=== PATIENT | female | born 1930 | race Caucasian/White ===

== ENCOUNTER 2016-08-18 07:50 | Observation (INO) | payer OTHER, MEDICARE ==
[2016-08-18] MEDS ORDERED: FAMOTIDINE 20 MG TAB PO ONE (07:56)
[2016-08-18] MEDS ORDERED: NS 1,000 ML IV ONE (07:56)
[2016-08-18] MEDS ORDERED: diphenhydrAMINE 25 MG CAP PO ONE ×2 (07:56→08:44)
[2016-08-18] MEDS ORDERED: ASPIRIN EC 325 MG TAB PO ONE ×2 (07:56→08:44)
[2016-08-18] MEDS ORDERED: DIAZEPAM 5 MG TAB PO ONE (07:56)
--- NOTE | 2016-08-18 08:29 | CPEKG ---
Heart Rate: 68 RR Interval: 882 QRSD Interval: 76 QT Interval: 420 QTC Interval: 447 QRS Baldwin: -36 T Wave Baldwin: 62 EKG Severity - ABNORMAL ECG - EKG Impression: ATRIAL FIBRILLATION EKG Impression: LEFT AXIS DEVIATION EKG Impression: CONSIDER ANTEROSEPTAL INFARCT Electronically Signed By: Evan Joseph 18-Aug-2016 09:16:55
[2016-08-18] MEDS ORDERED: FAMOTIDINE 20 MG TAB ONE (08:44)
[2016-08-18] MEDS ORDERED: DIAZEPAM 5 MG TAB ONE (08:45)
[2016-08-18 09:05] LABS: % IMMATURE GRANULYOCYTES 0.5 % (0.0-1.1); ABSOLUTE IMMATURE GRANULOCYTES 0.02 10^3/uL (0.00-0.10); ADD DIFF? NO; ADD MORPH? NO; ADD SCAN? NO; ATYPICAL LYMPHOCYTE FLAG 30 (0-99); FRAGMENT RBC FLAG 0 (0-99); HEMATOCRIT 34.8 % (38.0-47.0); HEMOGLOBIN 11.3 g/dL (12.6-16.3); LEFT SHIFT FLG 0 (0-99); LIPEMIA HEMOLYSIS FLAG 80 (0-99); MEAN CELL HEMOGLOBIN 25.1 pg (27.9-34.1); MEAN CELL HEMOGLOBIN CONCENTR. 32.5 g/dL (32.4-36.7); MEAN CELL VOLUME 77.3 fL (81.5-99.8); MEAN PLATELET VOLUME 10.2 fL (8.7-11.7); PLATELET CLUMPS FLAG 10 (0-99); PLATELET COUNT 230 10^3/uL (150-400); RED CELL DISTRIBUTION WIDTH 15.9 % (11.5-15.2)
[2016-08-18] MEDS ORDERED: LIDOCAINE 1% 30 ML SDV ONE (09:07)
[2016-08-18] MEDS ORDERED: fentaNYL 100 MCG/2 ML INJ ONE ×2 (09:08→12:42)
[2016-08-18] MEDS ORDERED: MIDAZOLAM 2 MG/2 ML VIAL ONE ×3 (09:08→12:42)
[2016-08-18] MEDS ORDERED: HEPARIN 10,000 UNIT/10 ML MDV ONE (09:08)
[2016-08-18] MEDS ORDERED: BIVALIRUDIN 250 MG/5 ML VIAL IV ONE ×2 (09:09→12:53)
[2016-08-18] MEDS ORDERED: VERAPAMIL 5 MG/2 ML VIAL ONE ×2 (09:09→10:43)
[2016-08-18] MEDS ORDERED: NITROGLYCERIN 1,500 MCG/15 ML VIAL MISC ONE (09:10)
[2016-08-18] MEDS ORDERED: IOPAMIDOL (ISOVUE 370) 100 ML BTL IV ONE (09:11)
[2016-08-18 09:21] LABS: ANION GAP 10 mEq/L (8-16); CALCIUM 9.8 mg/dL (8.5-10.4); CARBON DIOXIDE 23 mEq/l (22-31); CHLORIDE 105 mEq/L (97-110); CHOLESTEROL 125 mg/dL (140-220); CHOLESTEROL/HDL RATIO 1.87 RATIO (1.00-4.44); CREATININE 0.9 mg/dL (0.6-1.0); GLOMERULAR FILTRATION RATE 59; GLUCOSE 84 mg/dL (70-100); HIGH DENSITY LIPOPROTEIN 67 mg/dL (40-85); LDL/HDL RATIO 0.66 RATIO (1.00-3.22); LOW DENSITY LIPOPROTEIN 44 mg/dL (80-100); MAGNESIUM 2.2 mg/dL (1.6-2.3); NON-HIGH DENSITY LIPOPROTEIN 58 mg/dL (90-129); POTASSIUM 4.9 mEq/L (3.5-5.2); SODIUM 138 mEq/L (134-144); TRIGLYCERIDE 71 mg/dL (35-135); VERY LOW DENSITY LIPOPROTEINS 14 mg/dL (8-25)
[2016-08-18 09:27] LABS: INR 1.03 (0.83-1.16); PROTIME(PATIENT) 13.4 SEC (12.0-15.0)
--- NOTE | 2016-08-18 11:08 | SUROPNOTE ---
[facility] Operative Report - Surgery Date of Procedure: 08/18/2016 Indication: This patient is an 85 year old woman with known coronary artery disease s/p three vessel CABG in 2004 (UNGER to LAD, SVG to Cx OM, and SVG to D1) , which resulted in early graft failure of both SVG and subsequent stenting of the circumflex posterolateral branch and first diagonal branch. The patient underwent right/left heart catheterization at [facility] 07/09/16, which demonstrated total occlusion of the previous placed stent in the first diagonal branch and occlusion of the previously placed circumflex posterolateral stent. Intervention was performed on the first diagonal branch, with placement of two drug-eluting stents. The posterolateral branch was not intervened upon at that time. Repeat nuclear stress test demonstrates continued evidence of anterolateral ischemia. The patient continues to experience class III anginal equivalent with dyspnea on exertion and fatigue. In the setting of ongoing anginal symptoms and continued evidence of ischemia on the nuclear stress test, which correlates to the circumflex posterolateral territory, the decision was made to proceed with intervention on the circumflex principle posterolateral branch. Procedures performed: 1. Selective coronary angiography. 2. Balloon angioplasty and intracoronary stent placement x1 in the circumflex posterolateral branch. 3. Balloon angioplasty and intracoronary stent placement x1 in the main circumflex. Description of procedure: Description, risks, benefits and alternatives were discussed in detail. Informed consent was obtained. The patient was brought to the catheterization laboratory where a timeout was performed. The right wrist was sterilely prepped and draped. 2% lidocaine utilized for local anesthetic. A 5/6-Omani slender hemostatic sheath placed right radial artery utilizing micropuncture technique. Intraarterial verapamil and intravenous heparin was administered. A 6-Omani XBC 3.5 guide catheter was utilized, passed over a short J Glidewire. Due to excessive tortuosity of the brachiocephalic artery, the decision was made to switch to femoral access. The right groin was sterilely prepped and draped. 2% lidocaine utilized for local anesthetic. A 6-Omani hemostatic sheath was placed in the right femoral artery utilizing Modified Seldinger technique. Due to tortuosity of the femoral and iliac arteries, the 6-Omani sheath was exchanged for a 6-Omani 24cm sheath. The 6-Omani XBC 3.5 catheter was reintroduced, however would not engage. The 24cm sheath was exchanged for a 7- Omani 45cm sheath and a 6-Omani EBU 3.75 guide catheter was utilized to engage the left coronary system. Angiomax was administered. A long Bottle Assembler 150 and Turnpike Spiral catheter were placed in the circumflex as a unit. The Bottle Assembler 150 was exchanged for a long Bottle Assembler 200 through the Turnpike Spiral catheter. This was advanced further in the distal circumflex, then exchanged for a Confianza Pro 12. There was difficulty advancing the wire and the Turnpike due to heavily calcified disease. The Confianza was ultimately able to advance slightly through the proximal cap of the posterolateral chronic total occlusion. The Turnpike Spiral was then advance to the origin of the posterolateral. The Confianza Pro 12 was advanced further in the posterolateral, but then appeared to be subintimal. The Confianza Pro 12 was then exchanged for the Bottle Assembler 200 through the Turnpike. The Bottle Assembler 200 was advanced in the posterolateral, however it was unclear whether this was subintimal or if it achieved true lumen. The Turnpike Spiral was then advanced in the posterolateral. Bottle Assembler 200 was removed. Angiography was then performed through the Turnpike, with confirmed true lumen. A long [place] was advanced through the Turnpike and placed in the posterolateral. The Turnpike Spiral was removed while the Grandslam wire was kept in place. A 2.0mm x 12mm Emerge balloon was positioned was in the proximal posterolateral and utilized for a total of 4 inflations to a maximum of 16 atmospheres for pre-dilation. A short Prowater J was placed into the distal circumflex. The Emerge balloon was positioned to the ostial posterolateral and inflated to 18 atmospheres. The 2.0mm x 12mm Emerge balloon was removed, then was reintroduced on the short Prowater J wire, into the circumflex, however was not able to pass into the distal circumflex. Prowater J and balloon were removed. The Turnpike Spiral and Bottle Assembler 150 were re-introduced as a unit and placed in the circumflex. Bottle Assembler 150 exchanged for a long Bottle Assembler 50. Turnpike Spiral was advanced to the distal circumflex. The Bottle Assembler 50 was exchanged for a long Mailman wire through the Turnpike. 6-Omani intravascular ultrasound catheter was then placed, however was too large to advance with the Turnpike also in the guide. Instead, a 5- Omani intravascular ultrasound catheter was placed in the circumflex, but would not cross. A 2.5mm x 20mm Emerge balloon was then placed into the circumflex, however after manipulation of the balloon, no inflations were made. Instead, a 2.25mm x 15mm Emerge balloon was placed on the Mailman wire and positioned in the distal circumflex, utilized for a total of 3 inflations to a maximum of 16 atmospheres for pre-dilation. Balloon was removed. A 2.25mm x 28mm Synergy drug-eluting stent was chosen and carefully positioned in the distal circumflex. This was deployed to 20 atmospheres for 25 seconds. Stent balloon inflated to 20 atmospheres. Stent balloon removed. Intracoronary nitroglycerin and verapamil was administered. Ultrasound catheter was then re- introduced and attempted to place in the posterolateral branch, but would not cross. A 2.5mm x 12mm Emerge balloon was chosen and placed in the ostial- proximal posterolateral branch. This was inflated to 16 atmospheres for 11 seconds. Balloon was removed. A 2.5mm x 16mm Synergy drug-eluting stent was chosen and was carefully positioned in the proximal posterolateral branch. Clear -Stent visualization was utilized to position the stent within the previously stented segment, taking care to not cover the ostial posterolateral. This was deployed to 16 atmospheres for 25 seconds. Stent balloon removed. Intracoronary nitroglycerin and verapamil was administered. Both wires were removed. Final orthogonal angiography was performed, demonstrating satisfactory result - - there is a 50% stenosis from plaque shift in the distal circumflex, however there is 0% residual in-stent stenosis in both the circumflex and posterolateral branch. Radial arterial sheath removed and TR band place. The long 7-Omani sheath was exchanged for a short 7-Omani sheath. This sheath will be removed under manual pressure in the CVC. Findings: Hemodynamics: Aorta pressure 141/55, mean of 81. For full description of coronary anatomy and bypass graft findings, please reference catheterization procedure note 07/09/2016 at [facility]. 1. Left anterior descending: Angiography demonstrates widely patent stents in the first diagonal branch. 2. The circumflex is a dominant vessel, which gives rise to a small-moderate first obtuse marginal branch, a very small second obtuse marginal branch, a principle posterolateral branch, and a posterior descending artery. The previously stented posterolateral branch is chronically totally occluded ostial/ proximally, filling from [id number] collaterals. The first obtuse marginal branch is subtotally occluded and fills from faint [id number]-fj-[id number] collaterals. The circumflex contains a long distal 90% stenosis which effects the flow of the posterior descending artery. 3. Percutaneous intervention: Guided by angiography, balloon angioplasty was performed in the circumflex principle posterolateral branch and the main distal circumflex, followed by placement of a single drug-eluding stent in the distal circumflex and a single drug-eluting stent in the posterolateral branch. Final angiography shows there is a 50% stenosis from plaque shift in the distal circumflex, however there is 0% residual in-stent stenosis in both the circumflex and posterolateral branch. Impression: 1. Chronic total occlusion of the circumflex principle posterolateral branch, treated with balloon angioplasty and placement of a single drug-eluting stent, with 0% residual stenosis by angiography. 2. 90% distal circumflex stenosis, treated with balloon angioplasty and placement of a single drug-eluting stent. There is 0% residual in-stent stenosis , however there is a 50% stenosis in the distal circumflex from plaque shift from the posterolateral. 3. Patent stent in the first diagonal branch. Plan: 1. Continue dual antiplatelet therapy with Plavix and aspirin. 2. Plavix genetic testing. 3. Continue aggressive risk modification and high dose statin therapy. 4. Continue treatment for sleep apnea. 5. Close clinical follow up. Portions of this report were documented by a medical office administrator. I have reviewed this report and agree with the documentation. Report scribed for Dr. Ranjan Cordero. Report scribed by Carmen Tabares.
[2016-08-18] MEDS ORDERED: CLOPIDOGREL BISULFATE 75 MG TAB ONE (13:47)
--- NOTE | 2016-08-18 14:33 | CPEKG ---
Heart Rate: 47 RR Interval: 1277 QRSD Interval: 74 QT Interval: 476 QTC Interval: 421 QRS [place]: -45 T Wave [place]: 82 EKG Severity - ABNORMAL ECG - EKG Impression: ATRIAL FIBRILLATION EKG Impression: INFERIOR INFARCT, OLD EKG Impression: CONSIDER ANTEROSEPTAL INFARCT Electronically Signed By: Evan Joseph 20-Aug-2016 14:19:40
[2016-08-18] MEDS ORDERED: ATROPINE SULFATE 1 MG/10 ML SYR IVP PRN (15:59)
[2016-08-18] MEDS ORDERED: NITROGLYCERIN 0.4 MG BTL SL PRN (15:59)
[2016-08-18] MEDS ORDERED: TEMAZEPAM 15 MG CAP PO PRN (15:59)
[2016-08-18] MEDS ORDERED: HYDROCODONE/APAP 5/325 TAB PO PRN (15:59)
[2016-08-18] MEDS ORDERED: OXYCODONE/APAP 5/325 TAB PO PRN (15:59)
[2016-08-18] MEDS ORDERED: CLOPIDOGREL BISULFATE 75 MG TAB PO ONE (15:59)
[2016-08-18] MEDS ORDERED: LORazepam 2 MG/ML INJ IVP PRN (15:59)
[2016-08-18] MEDS ORDERED: ONDANSETRON 4 MG/2 ML VIAL IVP PRN (15:59)
[2016-08-18] MEDS ORDERED: D5W 1/2 NS 1,000 ML IV SCH (16:00)
[2016-08-18] MEDS ORDERED: amLODIPine BESYLATE 5 MG TAB PO SCH (21:30)
[2016-08-18] MEDS ORDERED: BRIMONIDINE 0.15% 5 ML OPHT.BTL EACHEYE SCH (21:30)
[2016-08-18] MEDS ORDERED: ATORVASTATIN CALCIUM 40 MG TAB PO SCH (21:30)
[2016-08-18] MEDS: BRIMONIDINE 0.2% 5 ML OPHT.BTL EACHEYE SCH (21:40)
[2016-08-18] MEDS: DORZOLAMIDE/TIMOLOL 10 ML OPHT.BTL EACHEYE SCH (21:40)
[2016-08-19 04:39] LABS: % IMMATURE GRANULYOCYTES 0.4 % (0.0-1.1); ABSOLUTE IMMATURE GRANULOCYTES 0.02 10^3/uL (0.00-0.10); ADD DIFF? NO; ADD MORPH? NO; ADD SCAN? NO; ATYPICAL LYMPHOCYTE FLAG 50 (0-99); FRAGMENT RBC FLAG 0 (0-99); HEMATOCRIT 29.4 % (38.0-47.0); HEMOGLOBIN 9.2 g/dL (12.6-16.3); LEFT SHIFT FLG 0 (0-99); LIPEMIA HEMOLYSIS FLAG 80 (0-99); MEAN CELL HEMOGLOBIN 25.5 pg (27.9-34.1); MEAN CELL HEMOGLOBIN CONCENTR. 31.3 g/dL (32.4-36.7); MEAN CELL VOLUME 81.4 fL (81.5-99.8); MEAN PLATELET VOLUME 10.6 fL (8.7-11.7); PLATELET CLUMPS FLAG 0 (0-99); PLATELET COUNT 181 10^3/uL (150-400); RED BLOOD CELL COUNT 3.61 10^6/uL (4.18-5.33); RED CELL DISTRIBUTION WIDTH 16.1 % (11.5-15.2)
[2016-08-19 04:59] LABS: ALBUMIN 3.3 g/dL (3.5-5.0); ANION GAP 8 mEq/L (8-16); ASPARTATE AMINOTRANSFERASE 30 IU/L (14-46); BILIRUBIN,TOTAL 0.4 mg/dL (0.1-1.4); CALCIUM 8.6 mg/dL (8.5-10.4); CARBON DIOXIDE 21 mEq/l (22-31); CHLORIDE 106 mEq/L (97-110); CREATININE 0.8 mg/dL (0.6-1.0); GLOMERULAR FILTRATION RATE > 60; GLUCOSE 111 mg/dL (70-100); LACTATE DEHYDROGENASE 464 IU/L (313-618); SODIUM 135 mEq/L (134-144)
[2016-08-19] MEDS ORDERED: LEVOTHYROXINE 112 MCG TAB PO SCH (06:00)
[2016-08-19] MEDS: DORZOLAMIDE/TIMOLOL 10 ML OPHT.BTL EACHEYE SCH (06:17)
[2016-08-19] MEDS: BRIMONIDINE 0.2% 5 ML OPHT.BTL EACHEYE SCH (06:18)
[2016-08-19] MEDS ORDERED: LATANOPROST 0.005% 2.5 ML OPHT DROPS EACHEYE SCH (09:00)
[2016-08-19] MEDS ORDERED: ASPIRIN EC 325 MG TAB PO SCH (09:00)
[2016-08-19] MEDS ORDERED: CLOPIDOGREL BISULFATE 75 MG TAB PO SCH (09:00)
--- NOTE | 2016-08-19 09:08 | CPEKG ---
Heart Rate: 68 RR Interval: 882 QRSD Interval: 80 QT Interval: 436 QTC Interval: 464 QRS [place]: -44 T Wave [place]: 79 EKG Severity - ABNORMAL ECG - EKG Impression: ATRIAL FIBRILLATION EKG Impression: LEFT ANTERIOR FASCICULAR BLOCK EKG Impression: ABNRM R PROG, CONSIDER ASMI OR LEAD PLACEMENT Electronically Signed By: Evan Joseph 20-Aug-2016 14:19:02
[2016-08-19 11:45] VITALS: BP 103/44; PULSE 83; RESP 18; TEMP 97.5; O2SAT 92
--- NOTE | 2016-08-19 11:58 | SOAPPROG ---
[facility] Progress Note Assessment/Plan: Assessment: Cardiology ([place]) 1. S/p DESx1 posterolateral branch of Cx, DESx1 Cx via R femoral approach this hospitalization. On DAPT with aspirin and Plavix. 2. Stenting of first diagonal artery in 2016, c/b large hematoma at femoral puncture site. 3. CAD s/p CABG 2004 with failure of SVGs to posterolateral and diagonal branches. 4. Chronic atrial fibrillation treated w/ Xarelto 15 mg/d. 5. Chronic anemia. 6. Renal insufficiency. 7. HTN. 8. Peripheral artery disease. 9. Hyperlipidemia. Plan: 1. Continue DAPT with aspirin and Plavix 75 mg/d. 2. Resume Xarelto 15 mg/d upon arrival to home. 3. Continue all other home medications. 4. Discharge to home today. 5. Follow up visit 08/25/16 at 830 am. Subjective: No complaints this am. Has no had Xarelto since Thursday but would like to take when she gets home today. Right groin puncture site is uncomplicated. No significant ecchymosis or hematoma, no bruit on auscultation. Objective: Vital Signs Temp Pulse Resp BP Pulse Ox 36.4 C 83 18 103/44 L 92 08/19/16 11:44 08/19/16 11:44 08/19/16 11:44 08/19/16 11:44 08/19/16 11:44 Laboratory Results 08/19/16 03:05 08/19/16 03:05 08/18/16 08/19/16 08/20/16 05:59 05:59 05:59 Intake Total 100 1388 Output Total 200 Balance -100 1388 PT 13.4 SEC (12.0-15.0) 08/18/16 08:50 INR 1.03 (0.83-1.16) 08/18/16 08:50 Physical Exam - Physical Exam General Appearance: WD/WN, alert, no apparent distress Respiratory: chest non-tender, lungs clear, normal breath sounds Cardiac/Chest: normal peripheral pulses, regular rate, rhythm Peripheral Pulses: 1+: dorsalis-pedis (R), dorsalis-pedis (L) Abdomen: normal bowel sounds, non-tender, soft Extremities: No swelling Neuro/Psych: no motor/sensory deficits, alert, normal mood/affect, oriented x 3
== END 2016-08-19 14:23 | disposition home or self-care (01) ==
LOC: FCATH 07:50 → F2W 11:07 → UNDODISOB 08-19 13:50
PROVIDERS: ADMIT Internal Medicine Interventional Cardiology; ATTEND Internal Medicine Interventional Cardiology
PROC: B2111ZZ Fluoroscopy of Multiple Coronary Arteries using Low Osmolar Contrast (ICD-10-PCS; principal; 2016-08-18)
PROC: 02703EZ Dilation of Coronary Artery, One Artery with Two Intraluminal Devices, Percutaneous Approach (ICD-10-PCS; principal; 2016-08-18)
DX: T82.855A Stenosis of coronary artery stent, initial encounter (principal); I25.118 Atherosclerotic heart disease of native coronary artery with other forms of angina pectoris; Z95.1 Presence of aortocoronary bypass graft; Z95.5 Presence of coronary angioplasty implant and graft; I48.91 Unspecified atrial fibrillation; Z79.01 Long term (current) use of anticoagulants; E78.5 Hyperlipidemia, unspecified; I10 Essential (primary) hypertension; J44.9 Chronic obstructive pulmonary disease, unspecified
CPT/HCPCS: 93005; 97165; C1725; C1753; C1769; C1874; C1887; C9601; C9607; G8987; G8988; G8989; J0583; J1644; J2250; J3010; Q9967; 81225-90

== ENCOUNTER → 2016-12-08 | Outpatient (CLI) | payer OTHER, MEDICARE | LOC: BRMIMAGING 13:14 | PROVIDERS: ATTEND Internal Medicine Cardiovascular Disease | DX: I65.23 Occlusion and stenosis of bilateral carotid arteries (principal) | CPT/HCPCS: 93880-PO ==

== ENCOUNTER → 2018-02-08 | Outpatient (CLI) | payer OTHER, MEDICARE | LOC: BMCIMAGING 09:22 | PROVIDERS: ATTEND Orthopaedic Surgery Hand Surgery | DX: Z47.1 Aftercare following joint replacement surgery (principal); Z96.612 Presence of left artificial shoulder joint ==

== ENCOUNTER → 2018-04-07 | Outpatient (CLI) | payer OTHER, MEDICARE | LOC: BHFA 14:45 | PROVIDERS: ATTEND Internal Medicine Cardiovascular Disease | DX: I25.10 Atherosclerotic heart disease of native coronary artery without angina pectoris (principal); I10 Essential (primary) hypertension; I48.2 Chronic atrial fibrillation ==

== ENCOUNTER → 2018-05-10 | Outpatient (CLI) | payer OTHER, MEDICARE | LOC: BHFA 11:30 | PROVIDERS: ATTEND Internal Medicine Cardiovascular Disease | DX: I48.91 Unspecified atrial fibrillation (principal) ==

== ENCOUNTER → 2018-09-07 | Outpatient (CLI) | payer OTHER, MEDICARE | LOC: BHFA 15:30 | PROVIDERS: ATTEND Internal Medicine Cardiovascular Disease | DX: I73.9 Peripheral vascular disease, unspecified (principal) ==

== ENCOUNTER → 2018-09-28 | Outpatient (CLI) | payer OTHER, MEDICARE | DX: I48.2 Chronic atrial fibrillation (principal); I25.10 Atherosclerotic heart disease of native coronary artery without angina pectoris; R53.83 Other fatigue | CPT/HCPCS: 78452; 93017; A9500; J2785 ==

== ENCOUNTER 2018-10-05 08:40 | Observation (INO) | payer OTHER, MEDICARE ==
[2018-10-05] MEDS ORDERED: FAMOTIDINE 20 MG TAB PO ONE (08:45)
[2018-10-05] MEDS ORDERED: diphenhydrAMINE 25 MG CAP PO ONE (08:45)
[2018-10-05] MEDS ORDERED: DIAZEPAM 5 MG TAB PO ONE (08:45)
[2018-10-05] MEDS ORDERED: ASPIRIN EC 325 MG TAB PO ONE (08:45)
[2018-10-05] MEDS ORDERED: NS 1,000 ML IV ONE (08:45)
[2018-10-05 09:46] LABS: PLATELET COUNT 211 10^3/uL (150-400)
[2018-10-05 09:55] LABS: INR 0.97 (0.83-1.16); PROTIME(PATIENT) 12.5 SEC (12.0-15.0)
--- NOTE | 2018-10-05 12:03 | PDPROPOC ---
Sedation Plan of Care Sedation Plan of Care: vital signs stable, mental status noted, patient educated of risks, benefits, alternatives, patient can tolerate sedation ASA Classification: ASA 2 Planned drugs: fentanyl, midazolam Mallampati Score: Class 2 Mallampati Reference Image: Patient passed 3-3-2 rule?: Yes
--- NOTE | 2018-10-05 12:04 | PDHPUP ---
History & Physical Update H&P update statement: This history and physical update is based on an assessment of the patient which was completed after admission or registration (within 24 hours), but prior to the surgery/procedure. H&P update: H&P reviewed & patient examined, no change in patient's condition since H&P completed H&P changes: Patient with abnormal MPI with history of CAD/CABG and numerous stents. Reversible perfusion defect to anterior wall.
[2018-10-05] MEDS ORDERED: MIDAZOLAM 2 MG/2 ML VIAL ONE (12:18)
[2018-10-05] MEDS ORDERED: fentaNYL 100 MCG/2 ML INJ ONE ×2 (12:18→13:51)
[2018-10-05] MEDS ORDERED: IOPAMIDOL (ISOVUE-370) 150 ML BTL IV ONE ×2 (12:18→13:23)
[2018-10-05] MEDS ORDERED: LIDOCAINE 1% 300 MG/30 ML SDV ONE (12:18)
[2018-10-05] MEDS ORDERED: ACETAMINOPHEN 325 MG TAB PO PRN (14:26)
[2018-10-05] MEDS ORDERED: TEMAZEPAM 15 MG CAP PO PRN (14:26)
[2018-10-05] MEDS ORDERED: HYDROCODONE/APAP 5/325 TAB PO PRN (14:26)
[2018-10-05] MEDS ORDERED: ONDANSETRON 4 MG/2 ML VIAL IVP PRN (14:26)
[2018-10-05] MEDS ORDERED: ATROPINE SULFATE 1 MG/10 ML SYR IVP PRN (14:26)
[2018-10-05] MEDS ORDERED: NITROGLYCERIN 0.4 MG BTL SL PRN (14:26)
[2018-10-05] MEDS ORDERED: NS 1,000 ML IV SCH (14:30)
--- NOTE | 2018-10-05 14:39 | PDDXCAT ---
Diagnostic Cath Note - . Date: 10/05/18 Paralegal Specialist: Jake Indication: other ([place] equivalent, CAD with h/o CABG and subsequent PCIs, and abnormal nuclear stress test.) - Procedure Access: right groin Procedure: left heart catheterization, coronary angiography, left ventriculogram , UNGER injection, other (PCI of the principal diagonal branch.) - Materials Left Heart Cath size: 6F Left Heart Cath materials: standard multipack (JL4, JR4, pigtail), [place] - Findings-Left Heart Catheterization LM: Normal. LAD: The LAD is totally occluded immediately after giving rise to the principal diagonal branch. Fluoroscopy reveals the presence of a previously stented segment in the proximal to midportion of the principal diagonal branch. Angiography reveals that the stented segment is patent. Immediately distal to the stented segment there is a focal 90% stenosis. LCX: Fluoroscopy reveals the presence of a complex bifurcation stented segment involving the distal bifurcation of the circumflex. Angiography reveals a dominant circumflex with [id number] irregularities in the proximal to mid- vessel. The stented bifurcation is widely patent. RCA: The RCA is nondominant and is occluded in its midportion. rSVG: The patient's bypass surgery included separate saphenous vein grafts to the principal diagonal and circumflex territory. These were not imaged as part of this study because they had previously been shown to be occluded. UNGER: The UNGER to LAD graft is widely patent. The target vessel has diffuse moderate disease. LVEF: 50% Wall motion: No regional variation in contractility. Complications: None Estimated blood loss: <50ml Closure method: manual pressure Assessment: 1) CAD as described above. 2) Two out of three bypass grafts occluded. 3) Patent UNGER to LAD graft. 4) Successful PCI of the principal diagonal branch using a single drug coated stent. 5) Low normal left ventricular systolic function. Intervention: Based on the patient's clinical history and diagnostic angiography, the decision was made to perform PCI of the principal diagonal branch. The patient received intravenous Angiomax. A 6 Palestinian CLS 3.75 guide catheter was advanced to the left main. An Intuition guidewire was advanced to the distal portion of the principal diagonal. Pre-dilatation of the focal 90% stenosis was performed using a 2.0 x 8 mm Emerge balloon. A 2.25 x 12 mm Synergy stent was then advanced into position and deployed at high pressure. Final angiography demonstrated 0% residual stenosis and EMILIA-III flow. Patient Problems: Problems Problem Status Onset Chronic atrial fibrillation Acute Coronary artery disease Acute
--- NOTE | 2018-10-05 16:40 | CPEKG ---
Test Reason : OPEN Blood Pressure : / mmHG Vent. Rate : 077 BPM Atrial Rate : 000 BPM P-R Int : 152 ms QRS Dur : 074 ms QT Int : 377 ms P-R-T Axes : 000 -23 048 degrees QTc Int : 427 ms Atrial fibrillation Borderline left axis deviation Anteroseptal infarct, old Confirmed by Robert White ([id number]) on 10/05/2018 4:40:01 PM Referred By: Armani Madison Confirmed By:Robert White
--- NOTE | 2018-10-05 16:43 | CPEKG ---
Test Reason : OPEN Blood Pressure : / mmHG Vent. Rate : 080 BPM Atrial Rate : 129 BPM P-R Int : 178 ms QRS Dur : 082 ms QT Int : 399 ms P-R-T Axes : 000 -35 057 degrees QTc Int : 461 ms Atrial fibrillation Probable left ventricular hypertrophy Confirmed by Robert White ([id number]) on 10/05/2018 4:43:08 PM Referred By: Armani Madison Confirmed By:Robert White
[2018-10-05] MEDS ORDERED: ATORVASTATIN CALCIUM 40 MG TAB PO SCH (21:00)
[2018-10-05] MEDS: BRIMONIDINE 0.2% 5 ML OPHT.BTL EACHEYE SCH (21:03)
[2018-10-06] MEDS ORDERED: LEVOTHYROXINE 112 MCG TAB PO SCH (06:00)
[2018-10-06] MEDS: FUROSEMIDE 20 MG TAB PO SCH ×2 (08:31→15:29)
[2018-10-06] MEDS ORDERED: CLOPIDOGREL BISULFATE 75 MG TAB PO SCH (09:00)
[2018-10-06] MEDS ORDERED: SPIRONOLACTONE 25 MG TAB PO SCH (09:00)
[2018-10-06] MEDS ORDERED: CHOLECALCIFEROL VIT D3 1,000 UNITS TAB PO SCH (09:00)
[2018-10-06] MEDS ORDERED: ASPIRIN 81 MG CHEWABLE TAB PO SCH (09:00)
[2018-10-06] MEDS ORDERED: CYANO/VITAMIN B12 1000 MCG TAB PO SCH (09:00)
[2018-10-06] MEDS ORDERED: RIVAROXABAN 15 MG TAB PO SCH (09:00)
[2018-10-06] MEDS ORDERED: PANTOPRAZOLE SODIUM 40 MG TAB PO SCH (09:00)
[2018-10-06] MEDS: BRIMONIDINE 0.2% 5 ML OPHT.BTL EACHEYE SCH (09:41)
[2018-10-06 12:16] VITALS: BP 120/46
--- NOTE | 2018-10-06 15:37 | ASMTLACE ---
LACE Length of stay for Answers: Less than 1 day current admission Acuity / Level of Answers: No Care: Did the patient have an inpatient admission? Comorbidities - select Answers: Coronary Artery Disease all that apply # of Emergency department Answers: 0 visits in the last 6 months Score: 2 Date Signed: 10/06/2018 03:37 PM Electronically Signed By:Kendra Hahn RN
--- NOTE | 2018-10-06 15:42 | ASMTCMCOM ---
CM Note CM Note Notes: Met with pt, she lives at a senior independent living facility and get out pt therapy. She does not wish to have any homecare, PT/OT cleared pt for home. CM available for any changes. DC Plan: Independent Date Signed: 10/06/2018 03:40 PM Electronically Signed By:Kendra Hahn RN
--- NOTE | 2018-10-06 20:17 | GDS ---
[f rep st] DISCHARGE SUMMARY REASON FOR ADMISSION: Coronary artery disease. HOSPITAL COURSE: Please refer to the recent [facility] office note which serves as the admission history and physical for this hospital encounter. Also, refer to my cardiac catheterization report. Briefly, the patient is an 88-year-old woman with a history of coronary artery disease. She underwe nt a 3-vessel CABG in 2004. She had subsequent failure of her [address] Grazyna tellez performed staged percutaneous coronary interventions on the principal diagonal branch of the left a nterior descending and the circumflex in the spring. Because of ongoing issues with fatigue and exercise intolerance, she had a nuclear stress test which suggested 2 territories of ischemia. A dditionally, her ejection fraction was slightly down at 48%. On this basis, a cardiac catheterizatio n was scheduled. That study demonstrated [place] vessel coronary artery disease with a complex bifurc ation stent procedure in the distal circumflex which is dominant. This stented segment was patent. The remainder of the circumflex demonstrated mild to moderate irregularities. The left anterior desc ending was occluded just after giving rise to the principal diagonal branch. The diagonal branch als o demonstrated evidence of previous stent placement in its proximal to midportion. Immediately dista l to the stented segment, there was a focal 90% stenosis. Her left internal mammary to LAD graft was patent. The grafted LAD demonstrated diffuse moderate disease. A small nondominant RCA was occlude d in its proximal portion. Her LVEF was approximately 50% without focal regional wall motion abnorma lities. The decision was made to perform PCI of the principal diagonal branch. This was carried out successfully with placement of a 2.25 x 12 mm Synergy drug-coated stent. Overnight, she has had no problems at her right femoral catheterization site. She is stable for discharge. A lipid panel perf ormed during this hospital stay demonstrated a total cholesterol of 122 with HDL 57, LDL 49, and trig lycerides 81. RECOMMENDATIONS AND DISPOSITION: She is discharged in stable condition. She should continue to foll heart healthy dietary and activity habits. Please refer to the electronic record for her medicati ons. She has been on Xarelto and clopidogrel long-term. For the next 4 weeks, I would like for her to add aspirin 81 mg daily. It can then be discontinued. She has followup with Dr. Armani Madison on at 1:30 in the afternoon. DISCHARGE DIAGNOSES: 1. Coronary artery disease. 2. Successful percutaneous coronary intervention of the principal diagonal branch using a single mor g-coated stent. /[id number]/MODL
== END 2018-10-06 17:04 | disposition home or self-care (01) ==
LOC: FCATH 08:40 → F2W 14:26
PROVIDERS: ADMIT Internal Medicine Interventional Cardiology; ATTEND Internal Medicine Interventional Cardiology
DX: I25.118 Atherosclerotic heart disease of native coronary artery with other forms of angina pectoris (principal); I25.708 Atherosclerosis of coronary artery bypass graft(s), unspecified, with other forms of angina pectoris; R94.39 Abnormal result of other cardiovascular function study; R53.83 Other fatigue; Z95.1 Presence of aortocoronary bypass graft; Z95.5 Presence of coronary angioplasty implant and graft; I48.2 Chronic atrial fibrillation; Z79.01 Long term (current) use of anticoagulants; E78.5 Hyperlipidemia, unspecified; E11.9 Type 2 diabetes mellitus without complications
CPT/HCPCS: 93005; 93459; 97116; 97161; 97165; C1725; C1769; C1874; C1887; C9600; J1644; J2250; J3010; Q9967

== ENCOUNTER 2018-10-07 11:45 | Inpatient (IN) | payer OTHER, MEDICARE ==
--- NOTE | 2018-10-07 13:33 | EDPHY ---
H & P Time Seen by Provider: 10/07/18 12:25 HPI/ROS: HPI Fall. Left leg weakness and pain. 88-year-old female by ambulance. She lives independently. She reports that she recently had a coronary catheterization with a stent placed on Thursday by Dr. Evan Joseph. She was discharged yesterday. She reports that she slept well last night. She got up early this morning and took a shower. When she got out of the shower she felt that she had some weakness in her left lower extremity. She describes this as being in her left groin and left hip area. She was able to use her walker to get to the door to let a friend in. When she got to the door she lost her balance and slowly lowered herself to the ground. She presents to the emergency department with pain involving the left ankle on the left knee. She states that she does not feel any focal weakness or loss of sensation in her extremities at this time. She describes having a tingling sensation in her left hip. She reports that this has resolved. She noticed this tingling side sensation when she woke up at approximately 7:30 a.m.. ROS: Constitutional: No fever, no chills. No weakness. Eyes: No discharge. No changes in vision. ENT: No sore throat. No nasal congestion or rhinorrhea. Respiratory: No cough. No shortness of breath. Cardiac: No chest pain, no palpitations. Gastrointestinal: No abdominal pain, no vomiting, no diarrhea. Genitourinary: No hematuria. No dysuria or increased frequency with urination. Musculoskeletal: No back pain. No neck pain. No myalgias or arthralgias. Skin: No rashes. Neurological: No headache. As above. Past medical history: As above, 3 vessel CABG in 2004, bilateral knee replacements, bilateral shoulder replacements, glaucoma, fem-pop bypass on the right side. Atrial fibrillation. Social history: She lives independently. Nonsmoker. No alcohol. Her son lives nearby and is present in the room with her. Physical Exam: General Appearance: Alert, no distress. This patient is responding to questions appropriately and in full sentences. This patient appears well- hydrated and well-nourished. Eyes: Pupils equal and round no pallor or injection. No lid edema, erythema or injection. ENT, Mouth: Mucous membranes are moist. The pharyngeal tissues are unremarkable. No edema or swelling. No asymmetry suggestive of abscess. No erythema or exudates. She has some dried blood in the bilateral nares. She tells me that she had a nose bleed from the dry air last night. Respiratory: There are no retractions, lungs are clear to auscultation with good air movement bilaterally. Cardiovascular: Regular rate and rhythm. No murmur. Gastrointestinal: Abdomen is soft and nontender, no masses, bowel sounds normal. No focal tenderness at McBurney's point. No Stapleton sign. Neurological: Motor sensory function is grossly intact. Cranial nerves are normal. Gait is normal. Skin: Warm and dry, no rashes. Musculoskeletal: Neck is supple and nontender. Left lower extremity exam: The left hip ranges passively and actively without pain or impingement. There is no tenderness on palpation of the long bones in the left lower extremity. She does have some tenderness which is vague posterior aspect of the left knee. No palpable cords. Negative Korutney sign. She also has some mild swelling which appears to be more chronic in nature involving the left ankle and specifically the left lateral malleolus. No bony step-off or deformity noted on palpation of this area. The left lower extremity is neurovascularly intact. On motor strength testing there is no asymmetry in comparison to the right lower extremity. Motor strength and sensory function are normal in the left lower extremity. Extremities are symmetrical except noted. All joints range without pain or impingement except noted. Right groin catheterization site clean dry intact. No evidence of hematoma or infection. Psychiatric: No agitation. No depression. Database: EKG: EKG time is 4:06 p.m.; EKG shows a narrow complex atrial fibrillation with a ventricular rate of 88. The QRS, QT intervals are within normal limits. There are no ST-T wave changes indicative of ischemic or injury pattern. No evidence of right heart strain. Interpreted by me. Imaging: Left ankle x-ray series: Left lateral malleolus soft tissue swelling indicative of left ankle sprain. Otherwise negative for fracture, subluxation, dislocation. Interpreted by me. Left knee x-ray series: Hardware intact. No evidence of fracture, subluxation , dislocation. Possible small effusion. Interpreted by me. Left lower extremity Doppler ultrasound: Negative for DVT. Results were discussed with staff radiologist Dr. Santos. Procedures: Emergency department course: Triage vital signs reviewed and are normal. The patient is afebrile. Her presentation is consistent with a pressure induced palsy likely secondary from sleeping awkwardly on her left hip and left lower extremity. It seems if her symptoms have resolved completely at this time. She did not fall hard to the ground and lowered herself from her walker near her front door as explained above. Tenderness involving the left ankle and the left knee will be evaluated by imaging as noted above. She declines pain medication at this time. 3:05 p.m., the patient was re-evaluated, resting comfortably at this time. Results of her diagnostic imaging as noted above discussed with her and her son. We will get her up and ambulate her with a walker which is her baseline. Will see how she does and what her comfort level is with going home. She does live alone does not have any daily assistance. 3:45 p.m., the patient was re-evaluated, she is not comfortable ambulating with her walker. She still complains of a vague weakness in her right lower extremity. Repeat neurologic Assessment however is nonfocal. She does not have any back or neck pain. No headache. I discussed results of her emergency department workup in imaging. I explained we would admit her to the hospitalist service. Blood work will be obtained as well as an EKG. Hospitalist paged. 3:50 p.m., spoke with on-call hospitalist Dr. Elvis Salciod. Case discussed in detail with her. She accepts this patient for admission. She will evaluate the patient in the emergency department. After Dr. 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 Given the onset of her symptoms early this morning she is not within the tPA window of treatment. The patient's remaining emergency department course under my care has been uneventful. She was admitted in stable condition to the hospitalist service. Differential Diagnosis: The differential diagnosis on this patient includes but is not limited to left knee sprain, left ankle sprain. Left lower extremity DVT, fracture, subluxation , dislocation involving the left lower extremity, CVA, radiculopathy unlikely. This represents a partial list of diagnoses considered. These considerations are based on history, physical exam, past history, reassessment and diagnostic testing. Smoking Status: Former smoker Constitutional: Initial Vital Signs Temperature (C) 36.8 C 05/09/19 11:56 Heart Rate 93 10/07/18 11:56 Respiratory Rate 18 10/07/18 11:56 Blood Pressure 117/60 10/07/18 11:56 O2 Sat (%) 99 10/07/18 11:56 O2 Delivery Mode Room Air Allergies/Adverse Reactions: candesartan Allergy (Verified 08/18/16 07:28) sulfamethoxazole Allergy (Verified 08/18/16 07:30) trimethoprim Allergy (Verified 08/18/16 07:28) Home Medications: Medication Instructions Recorded Atorvastatin Calcium [Lipitor 80 80 mg PO HS 08/18/16 mg] Brimonidine 0.2% [Alphagan 0.2%] 1 drops EACHEYE BID 08/18/16 Clopidogrel Bisulfate [Plavix (*)] 75 mg PO DAILY 08/18/16 Cyanocobalamin [Vitamin B12 (*)] 1 tab PO DAILY 08/18/16 Furosemide [Lasix 20 MG (*)] 40 mg PO DAILY 08/18/16 Herbals/Supplements -Info Only 1 tab PO DAILY 08/18/16 Rivaroxaban [Xarelto 15mg (*)] 15 mg PO HS 08/18/16 Spironolactone [Aldactone 25 MG 12.5 mg PO DAILY 08/18/16 (*)] Acetaminophen [Tylenol 325mg (*)] 650 mg PO Q8HRS PRN 10/05/18 Cholecalciferol Vit D3 [Vitamin D3 1,000 units PO BID 10/05/18 (*)] Pantoprazole Sodium [Protonix 40mg 40 mg PO DAILY 10/05/18 (*)] Aspirin [Aspirin 81mg (*)] 81 mg PO DAILY #30 tab.chew 10/06/18 Calcium Citrate [Citracal (OTC)] 200 mg PO BID 10/07/18 Calcium Polycarbophil [FIBERCON] 625 mg PO HS 10/07/18 Dorzolamide/Timolol [Cosopt (*)] 1 drops EACHEYE BID 10/07/18 Latanoprost 0.005% [Xalatan 0.005% 1 drops EACHEYE HS 10/07/18 (*)] Levothyroxine [Synthroid 100 mcg 100 mcg PO DAILY06 10/07/18 (*)] Vit A/Vit C/Vit E/Zinc/Copper 1 each PO BID 10/07/18 [Preservision Tablet] Medical Decision Making - Data Points Laboratory Results: Laboratory Results 10/07/18 16:11 10/07/18 16:11 Medications Given: Acetaminophen (Tylenol) 1,000 mg PO Q6HRS PRN PRN Reason: Pain, Mild/Fever, Can Take PO Stop: 04/06/19 13:43 Last Admin: 10/08/18 18:27 Dose: 1,000 mg Aspirin (Aspirin) 81 mg PO DAILY VY Stop: 04/05/19 18:14 Last Admin: 10/09/18 08:37 Dose: 81 mg Atorvastatin Calcium (Lipitor) 80 mg PO HS VY Stop: 04/05/19 20:59 Last Admin: 10/08/18 19:06 Dose: 80 mg Brimonidine Tartrate (Alphagan 0.2%) 1 drops EACHEYE BID VY Stop: 04/05/19 20:59 Last Admin: 10/09/18 08:38 Dose: 1 drops Calcium Carbonate (Oyster Shell Calcium) 500 mg PO BID VY Stop: 04/05/19 20:59 Last Admin: 10/09/18 08:37 Dose: 500 mg Cholecalciferol (Vitamin D) 1,000 units PO BID VY Stop: 04/05/19 20:59 Last Admin: 10/09/18 08:37 Dose: 1,000 units Clopidogrel Bisulfate (Plavix) 75 mg PO DAILY VY Stop: 04/06/19 08:59 Last Admin: 10/09/18 08:37 Dose: 75 mg Dorzolamide/Timolol (Cosopt) 1 drops EACHEYE BID VY Stop: 04/05/19 20:59 Last Admin: 10/09/18 08:38 Dose: 1 drop Latanoprost (Xalatan 0.005%) 1 drops EACHEYE HS VY Stop: 04/05/19 20:59 Last Admin: 10/08/18 19:43 Dose: 1 drop Levothyroxine Sodium (Synthroid) 100 mcg PO DAILY06 VY Stop: 04/06/19 05:59 Last Admin: 10/09/18 07:24 Dose: 100 mcg Multivitamins/Minerals (Preservision Areds2 Formula) 1 each PO BIDMEAL VY Stop: 04/05/19 18:14 Last Admin: 10/09/18 08:37 Dose: 1 each Pantoprazole Sodium (Protonix) 40 mg PO DAILY VY Stop: 04/06/19 08:59 Last Admin: 10/09/18 08:37 Dose: 40 mg Psyllium Hydrophilic Mucilloid (Metamucil/Konsyl) 1 each PO HS VY Stop: 04/05/19 20:59 Last Admin: 10/08/18 19:06 Dose: 1 each Rivaroxaban (Xarelto) 15 mg PO HS VY Stop: 04/05/19 20:59 Last Admin: 10/08/18 19:06 Dose: 15 mg Vitamin B Complex (Vitamin B12) 1,000 mcg PO DAILY VY Stop: 04/06/19 08:59 Last Admin: 10/09/18 08:37 Dose: 1,000 mcg Discontinued Medications Acetaminophen (Tylenol) 650 mg PO Q4HRS PRN PRN Reason: Pain, Mild/Fever, Can Take PO Stop: 04/05/19 16:54 Last Admin: 10/08/18 08:46 Dose: 650 mg Departure - Departure Disposition: [facility] Acute Clinical Impression: Left knee pain, Fall from ground level, Left ankle sprain, Left leg weakness
[2018-10-07 16:24] LABS: PLATELET COUNT 220 10^3/uL (150-400)
[2018-10-07] MEDS ORDERED: oxyCODONE IR 5 MG TAB PO PRN (16:55)
[2018-10-07] MEDS ORDERED: ONDANSETRON DISINTEGRATING 4 MG TAB PO PRN (16:55)
[2018-10-07] MEDS ORDERED: HYDROmorphONE/DILAUDID 1 MG/ML INJ IVP PRN (16:55)
[2018-10-07] MEDS ORDERED: HYDROCODONE/APAP 5/325 TAB PO PRN (16:55)
[2018-10-07] MEDS ORDERED: PROMETHAZINE HCL 25 MG/ML INJ IVP PRN (16:55)
[2018-10-07] MEDS ORDERED: ONDANSETRON 4 MG/2 ML VIAL IVP PRN (16:55)
--- NOTE | 2018-10-07 16:58 | PDGENHP ---
History and Physical - Chief Complaint left leg weakness and pain - History of Present Illness 88 yo F with MMI including CAD, a fib, PVD and DM2 who underwent cardiac cath and PCI 2 days ago presenting with complaints of left leg tingling, weakness and pain. She notes that she had the catheter placed in the right groin, and that area seemed to be healing appropriately and was not very tender, but woke today with tingling in her left groin. She notes that the tingling progressed to weakness involving the left leg, and that when she got up to walk to the door this afternoon she felt as if the leg were just hanging and she essentially collapsed to the ground. She has had some swelling in her left ankle as well. In the ER an US of the leg and xrays of the ankle and knee were performed which were all unremarkable, however she remained unable to ambulate due to weakness in the left leg. She notes that she generally gets around with a walker at home, but lives alone and does not feel safe going home in this condition. On my evaluation, concern raised for stroke given essentially isolated weakness of the LLE and brain MRI ordered confirming acute lacunar infarcts of right caudate and parietal areas. History Information - Allergies/Home Medication List Allergies/Adverse Reactions: candesartan Allergy (Verified 08/18/16 07:28) sulfamethoxazole Allergy (Verified 08/18/16 07:30) trimethoprim Allergy (Verified 08/18/16 07:28) Home Medications: Atorvastatin Calcium [Lipitor 80 mg] 80 mg PO HS 08/18/16 [Last Taken 10/06/18] Brimonidine 0.2% [Alphagan 0.2%] 1 drops EACHEYE BID 08/18/16 [Last Taken ] Clopidogrel Bisulfate [Plavix (*)] 75 mg PO DAILY 08/18/16 [Last Taken 10/07/18] Cyanocobalamin [Vitamin B12 (*)] 1 tab PO DAILY 08/18/16 [Last Taken 10/07/18] Furosemide [Lasix 20 MG (*)] 40 mg PO DAILY 08/18/16 [Last Taken 10/07/18] Herbals/Supplements -Info Only 1 tab PO DAILY 08/18/16 [Last Taken 10/07/18] Rivaroxaban [Xarelto 15mg (*)] 15 mg PO HS 08/18/16 [Last Taken 10/06/18] Spironolactone [Aldactone 25 MG (*)] 12.5 mg PO DAILY 08/18/16 [Last Taken 10/07] Acetaminophen [Tylenol 325mg (*)] 650 mg PO Q8HRS PRN 10/05/18 [Last Taken 10/04] Cholecalciferol Vit D3 [Vitamin D3 (*)] 1,000 units PO BID 10/05/18 [Last Taken 10/07/18] Pantoprazole Sodium [Protonix 40mg (*)] 40 mg PO DAILY 10/05/18 [Last Taken 02/17] Calcium Citrate [Citracal (OTC)] 200 mg PO BID 10/07/18 [Last Taken 10/07/18] Calcium Polycarbophil [FIBERCON] 625 mg PO HS 10/07/18 [Last Taken Unknown] Dorzolamide/Timolol [Cosopt (*)] 1 drops EACHEYE BID 10/07/18 [Last Taken ] Latanoprost 0.005% [Xalatan 0.005% (*)] 1 drops EACHEYE HS 10/07/18 [Last Taken 10/06/18] Levothyroxine [Synthroid 100 mcg (*)] 100 mcg PO DAILY06 10/07/18 [Last Taken ] Vit A/Vit C/Vit E/Zinc/Copper [Preservision Tablet] 1 each PO BID 10/07/18 [ Last Taken 10/07/18] I have personally reviewed and updated: family history, medical history, social history, surgical history - Past Medical History atrial fibrillation, coronary artery disease (multiple stents, most recently on 10/05 to diag), CHF (EF of 48%), glaucoma, hypertension, hyperlipidemia, peripheral artery disease Additional medical history: ANALI. 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 PVD/ carotid disease - Surgical History Reports: coronary bypass surgery (3 v), hernia repair, coronary stent Additional surgical history: fem pop bypass. knee and shoulder surgery - Family History Positive for: non-pertinent - Social History Smoking Status: Former smoker (quit in the 60s) Alcohol Use: Rarely Drug Use: None Additional social history: lives independently, uses a walker Review of Systems Review of Systems: ROS: 10pt was reviewed & negative except for what was stated in HPI & below Physical Exam Physical Exam: Temp Pulse Resp BP Pulse Ox 36.5 C 91 16 138/83 H 95 10/07/18 13:24 10/07/18 13:24 10/07/18 13:24 10/07/18 13:24 10/07/18 13:24 Constitutional: no apparent distress, appears nourished Eyes: PERRL, anicteric sclera Ears, Nose, Mouth, Throat: moist mucous membranes, hearing normal Cardiovascular: no murmur, rub, or gallop, irregularly irregular, edema Respiratory: no respiratory distress, no rales or rhonchi, clear to auscultation Gastrointestinal: normoactive bowel sounds, soft, non-tender abdomen Genitourinary: no bladder tenderness Skin: warm, normal color Musculoskeletal: abnormal gait, No asymmetric calves Neurologic: AAOx3, weakness (left leg 3/5 foot/knee), CN II-XII Intact, No sensation intact bilaterally (decreased LLE) Psychiatric: interacting appropriately, not anxious, not encephalopathic Lab Data & Imaging Review 10/07/18 16:11 10/07/18 16:11 WBC 6.93 10^3/uL (3.80-9.50) 10/07/18 16:11 RBC 4.59 10^6/uL (4.18-5.33) 10/07/18 16:11 Hgb 12.7 g/dL (12.6-16.3) 10/07/18 16:11 Hct 39.3 % (38.0-47.0) 10/07/18 16:11 MCV 85.6 fL (81.5-99.8) 10/07/18 16:11 MCH 27.7 pg (27.9-34.1) L 10/07/18 16:11 MCHC 32.3 g/dL (32.4-36.7) L 10/07/18 16:11 RDW 15.7 % (11.5-15.2) H 10/07/18 16:11 Plt Count 220 10^3/uL (150-400) 10/07/18 16:11 MPV 9.8 fL (8.7-11.7) 10/07/18 16:11 Neut % (Auto) 74.0 % (39.3-74.2) 10/07/18 16:11 Lymph % (Auto) 12.7 % (15.0-45.0) L 10/07/18 16:11 Meade % (Auto) 11.0 % (4.5-13.0) 10/07/18 16:11 Eos % (Auto) 1.6 % (0.6-7.6) 10/07/18 16:11 Baso % (Auto) 0.4 % (0.3-1.7) 10/07/18 16:11 Nucleat RBC Rel Count 0.0 % (0.0-0.2) 10/07/18 16:11 Absolute Neuts (auto) 5.13 10^3/uL (1.70-6.50) 10/07/18 16:11 Absolute Lymphs (auto) 0.88 10^3/uL (1.00-3.00) L 10/07/18 16:11 Absolute Monos (auto) 0.76 10^3/uL (0.30-0.80) 10/07/18 16:11 Absolute Eos (auto) 0.11 10^3/uL (0.03-0.40) 10/07/18 16:11 Absolute Basos (auto) 0.03 10^3/uL (0.02-0.10) 10/07/18 16:11 Absolute Nucleated RBC 0.00 10^3/uL (0-0.01) 10/07/18 16:11 Immature Gran % 0.3 % (0.0-1.1) 10/07/18 16:11 Immature Gran # 0.02 10^3/uL (0.00-0.10) 10/07/18 16:11 Visualized and Interpreted imaging results: Yes Interpretation: brain MRI: acute lacunar infarct right caudate/parietal region Visualized and Interpreted EKG results: Yes EKG additional interpertation: a fib, lad Assessment & Plan Assessment: Left knee pain (Acute) Fall from ground level (Acute) Left ankle sprain (Acute) Left leg weakness (Acute) 88 yo F with PMH that includes CAD with recent PCI as well as a fib, PVD, DM2 presenting with left leg weakness found to be due to acute CVA # CVA: acute right sided parietal/and right caudate with presenting sxs of left leg weakness--not initially treated as CVA, thought to be due to ankle sprain, however even on arrival to ER patient not candidate for TPA given time of presentation. Head/neck CTA ordered--formal read pending but on discussion with radiology, no critical stenosis to explain presentation. ? due to atheroembolism given recent cardiac stent placement. Neuro/cardiology consults requested, patient already on asa/plavix as well as xarelto and statin which will be continued for now. 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, echo in am # CAD: with hx of multiple cardiac stents and 3v CABG, most recently stent to the diag 2 days prior, as above, cardiology consulted, no c/o chest pain, will get serial trops and monitor on tele, echo in am # a fib: rate controlled, on chronic AC, this was held for several days prior to her cath on the unclear if that is related to her cva # PVD: with hx of carotid disease and fem pop bypass in the past, head/neck cta read pending as above but no critical lesions per report # HTN: in review of outpatient records this has been well controlled, slightly high in ER and will allow for permissive htn overnight, she is only on lasix and aldactone as an OP for BP management, will hold these for now # chronic systolic CHF: with most recent EF of 48% on MPI, on lasix/aldactone as above holding for now, does not appear grossly volume overloaded, given acute CVA will get echo in am--did not see recent echo in [place] # DM2: with A1c of 5.9 recently and not on any DM medications, presumably diet controlled # HLD: continue statin # glaucoma: right eye blind, continue drops as scheduled # IP status, patient lives alone, acute cva and not safely ambulating currently # Patient new to my care. Old records reviewed and summarized as above. Care plan reviewed with ER doctor as above.
[2018-10-07] MEDS ORDERED: IOPAMIDOL (ISOVUE 370) 100 ML BTL IV ONE (18:27)
[2018-10-07] MEDS: PSYLLIUM METAMUCIL 1 PKT PO SCH (20:46)
[2018-10-07] MEDS: CHOLECALCIFEROL VIT D3 1,000 UNITS TAB PO SCH (20:47)
[2018-10-07] MEDS: CALCIUM CARBONATE 500 MG TAB PO SCH (20:47)
[2018-10-07] MEDS: ATORVASTATIN CALCIUM 40 MG TAB PO SCH (20:47)
[2018-10-07] MEDS: ASPIRIN 81 MG CHEWABLE TAB PO SCH (20:52)
[2018-10-07] MEDS: RIVAROXABAN 15 MG TAB PO SCH (20:52)
[2018-10-07] MEDS: ACETAMINOPHEN 325 MG TAB PO PRN (20:52)
[2018-10-07] MEDS: PRESERVISION AREDS2 FORMULA EYE VIT 1 EACH PO SCH (20:52)
--- NOTE | 2018-10-07 20:58 | CPEKG ---
Test Reason : OPEN Blood Pressure : / mmHG Vent. Rate : 088 BPM Atrial Rate : 103 BPM P-R Int : 104 ms QRS Dur : 082 ms QT Int : 376 ms P-R-T Axes : -03 -23 047 degrees QTc Int : 455 ms Atrial fibrillation Borderline left axis deviation Confirmed by Venus Maharaj ([id number] on 10/07/2018 8:57:34 PM Referred By: Venus Maharaj Confirmed By:Venus Maharaj
[2018-10-07] MEDS: LATANOPROST 0.005% 2.5 ML OPHT DROPS EACHEYE SCH (22:36)
[2018-10-07] MEDS: BRIMONIDINE 0.2% 5 ML OPHT.BTL EACHEYE SCH (22:36)
[2018-10-07] MEDS: DORZOLAMIDE/TIMOLOL 10 ML OPHT.BTL EACHEYE SCH (22:36)
[2018-10-08] MEDS: LEVOTHYROXINE 100 MCG TAB PO SCH (05:39)
[2018-10-08] MEDS: ACETAMINOPHEN 325 MG TAB PO PRN (08:46)
[2018-10-08] MEDS: PRESERVISION AREDS2 FORMULA EYE VIT 1 EACH PO SCH ×2 (08:47→19:06)
[2018-10-08] MEDS: CYANO/VITAMIN B12 1000 MCG TAB PO SCH (08:47)
[2018-10-08] MEDS: CLOPIDOGREL BISULFATE 75 MG TAB PO SCH (08:47)
[2018-10-08] MEDS: CHOLECALCIFEROL VIT D3 1,000 UNITS TAB PO SCH ×2 (08:48→19:06)
[2018-10-08] MEDS: PANTOPRAZOLE SODIUM 40 MG TAB PO SCH (08:48)
[2018-10-08] MEDS: ASPIRIN 81 MG CHEWABLE TAB PO SCH (08:49)
[2018-10-08] MEDS: CALCIUM CARBONATE 500 MG TAB PO SCH ×2 (08:49→19:06)
[2018-10-08] MEDS: BRIMONIDINE 0.2% 5 ML OPHT.BTL EACHEYE SCH ×2 (08:52→19:08)
[2018-10-08] MEDS: DORZOLAMIDE/TIMOLOL 10 ML OPHT.BTL EACHEYE SCH ×2 (08:52→19:44)
[2018-10-08] MEDS ORDERED: SPIRONOLACTONE 25 MG TAB PO SCH (09:00)
[2018-10-08] MEDS ORDERED: FUROSEMIDE 40 MG TAB PO SCH (09:00)
--- NOTE | 2018-10-08 09:58 | NEUROPROG ---
Assessment: [id number] - Neurology Consult: - CC: Stroke - HPI: 10/08/18: Pt with PMHx of afib on xarelto, CAD, CHF, HTN, HLD. Pt underwent cardiac cath on 10/05/18 (her anticoagulation was held for several days prior to the procedure). On 10/07/18 she developed left leg tingling, weakness, and pain. Brain MRI showed right sided small strokes (2 areas) that seemed to explain the left leg weakness. CTA head/neck showed bilateral carotid stenosis at or greater than 50%. LDL 38 on statin. Pt on Xarelto and plavix prior to admission. She reported she was also placed on aspirin 81 mg qd for a planned 4 weeks after the stent was placed. Neurologic exam showed left leg weakness. Her stroke is likely either from holding anticoagulation in setting of afib or possibly from the cardiac cath procedure. She is now back on anticoagulation. I doubt her right carotid stenosis caused the stroke but it is possible. However, pt declined any referral for carotid surgery evaluation at this time. Given her advanced age and underlying medical issues, I feel she would be a high risk surgical patient. 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 Oriented x person/place/date . concentration appears normal . speech fluency/comprehension normal . memory appears normal . fund of knowledge appear intact - Cranial Nerves: . II: right eye blindness, normal vision in left eye . III/IV/: EOMI, no nystagmus, normal smooth pursuits, no Ptosis . V: facial sensation intact to LT . VII: face symmetric to eye closure and smile . VIII: hearing intact to conversation . IX/X: uvula raises symmetrically . XI: SCM 5/5 B/L strength . XII: tongue protrudes midline w/nl strength - Motor: . Tone: normal tone in all 4 extremity . Strength: bilateral shoulder weakness she says is from previous bilateral shoulder surgeries, left leg weakness - Reflexes: B/L bic 2/ - Sensory: all 4 extremity intact to light touch - Coord: no coordination issues noted - Gait: deferred - Labs: 10/08/18- LDL 38L - Rads: 10/07/18- Brain MRI wo: Acute lacunar infarcts right caudate head and right parietal cortex. No acute hemorrhage, hydrocephalus, mass effect, or herniation. Moderate cerebral and cerebellar atrophy. Multiple nonspecific hyperintense T2/FLAIR signal abnormalities in the white matter of bilateral cerebral hemispheres. Differential diagnosis includes severe microvascular ischemic gliosis, versus less likely post-infectious/post-inflammatory sequela. (I personally visualized the images on 10/08/18) - 10/07/18- CTA head/neck: There is extensive atherosclerotic calcific plaque, with a 55% mean diameter stenosis of the proximal right internal carotid artery, and a 50% mean diameter stenosis of the proximal left internal carotid artery. 2. Patent vertebral arteries. There are moderate focal stenoses involving each of the supraclinoid internal carotid arteries. There is no intra-arterial thrombus identified. - Assessment: 1. 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 She is now back on anticoagulation. - 2. B/L Carotid stenosis >= 50%: I doubt her right carotid stenosis caused the stroke but it is possible. However, pt declined any referral for carotid surgery evaluation at this time. Given her advanced age and underlying medical issues, I feel she would be a high risk surgical patient. - Plan: - Continue Xarelto, aspirin, and plavix for stroke prevention (stroke on 10/07/18 occurred after anticoagulation was briefly held a few days for a cardiac procedure) - TTE to ensure no cardiac thrombus - Blood pressure goal < 220/120 x 48 hours then < 140/90 - H1AC < 7.0 - LDL < 70 (38), continue statin - PT/OT/Speech to determine rehab needs - F/U in neurology clinic 1-6 weeks after hospital discharge Objective: Vital Signs Temp Pulse Resp BP Pulse Ox 36.6 C 76 25 H 134/67 H 100 10/08/18 07:54 10/08/18 07:54 10/08/18 07:54 10/08/18 07:54 10/08/18 07:54 Laboratory Results 10/07/18 16:11 10/08/18 04:26 10/07/18 10/08/18 10/09/18 05:59 05:59 05:59 Intake Total 200 Output Total 100 300 Balance 100 -300 Allergies/Adverse Reactions: candesartan Allergy (Verified 08/18/16 07:28) sulfamethoxazole Allergy (Verified 08/18/16 07:30) trimethoprim Allergy (Verified 08/18/16 07:28)
--- NOTE | 2018-10-08 12:44 | PDMN ---
Medical Necessity Medical necessity: Change to IP, as of 10/07/18, per MD; los >2 mn for ongoing management of acute CVA; requiring further workup/monitoring, Cardiology/ Neurology consults, med management & therapies; hx recent PCI, AFIB on AC (held several days prior to cath), CHF
--- NOTE | 2018-10-08 13:09 | ECHO ---
[email or web address] [address] [address] Main: [phone] Echocardiography Examination Transthoracic Name: LEILANI BARRERA MR#: [id number] Study Date: 10/08/2018 Study Time: 10:38 AM Date of : 1930 Age: 88 year(s) Height: 160 cm (63 in.) Weight: 56.7 kg (125 lb.) BSA: 1.58 m2 Gender: Female Examination: Echo Contrast: Image Quality: Adequate Rhythm: Atrial fibrillation Heart Rate: 74 bpm BP: 134 mmHg/67 mmHg Indication: Cerebrovascular: prior CVA Procedure Staff Referring Physician: Graduate Recruiter: Tiffanie Barba [facility] Reading Physician: Evan Joseph MD Requesting Provider: Ordering Physician: Elvis Salcido Indication: Cerebrovascular: prior CVA Measurements Chambers AV/MV Label Value Normal Value Label Value Normal Value LVOT Vmax 0.77 m/s (0.7m/s - 1.1m/s) AR PHT 0.6 s LVOTd 1.8 cm (1.8cm - 2cm) AR PHT 595 ms LVDd, 2D 3.7 cm (3.9cm - 5.3cm) AR Vena contracta 0.6 cm LVDs, 2D 2.4 cm (2.1cm - 4cm) AR Vmax 3.35 m/s IVSd, 2D 0.9 cm (0.6cm - 1.1cm) AV PGmax 8 mmHg LVPWd, 2D 0.9 cm AV Vmax 1.4 m/s LVEF, BP 66 % (55% - 70%) MARIA M (Vmax) 1.4 cm2 LVEF, 2D 65 % (54% - 74%) MV E Vmax 1.07 m/s RVDd, 2D 2.8 cm (1.9cm - 3.8cm) MV DT 163 ms TAPSE 1.6 cm MV VTI 37.1 cm LA Volume, BP 61 ml (22ml - 52ml) MV PGmax 8 mmHg LADs, 2D 4.2 cm (2.7cm - 3.8cm) MV PGmean 3 mmHg LAESV index, BP 38.6 ml/m2 MV PHT 0.07 s RA Area 13 cm2 MVA PHT 3.3 cm2 Additional Vessels MV PHT 66 ms Label Value Normal Value TV/PV AoAsc 3.2 cm Label Value Normal Value AoRoot, 2D 2.8 cm (1.4cm - 2.6cm) PV PGmax 2 mmHg PV Vmax, Caliper 0.69 m/s (0.6m/s - 0.9m/s) Patient: LEILANI BARRERA Study Date: 10/08/2018 Page 1 of 3 10:38 AM Conclusions Left Ventricle: Left ventricle is normal in size. The ejection fraction, measured by Simpsons method, is 66 %. There are no regional wall motion abnormalities. Left Atrium: The left atrium is mildly dilated. Mitral Valve: Mild to moderate mitral regurgitation. No mitral valve stenosis. There is mild mitral calcification. There is mild to moderate mitral thickening. There is mild mitral thickening. There is moderate posterior annular calcification and mild anterior annular calcification. Aortic Valve: Moderate aortic regurgitation is present. There is no aortic stenosis. Aortic leaflets exhibit mild calcification. Tricuspid Valve: Trivial tricuspid regurgitation. Pericardium: No pericardial effusion. Overall Conclusions: Compared to echo of 08/17/2017, today's echo is unchanged. Findings Left Ventricle: Left ventricle is normal in size. Normal global systolic left ventricular function. EF evaluated by EF (biplane Julian's). The ejection fraction, measured by Simpsons method, is 66 %. EF range is estimated at 60 % - 65 %. The LV wall thickness is at the upper limits of normal. There are no regional wall motion abnormalities. Unable to assess Diastolic Dysfunction due to atrial fibrillation/a flutter. Right Ventricle: Normal size right ventricle. Right ventricular systolic function is normal. Left Atrium: The left atrium is mildly dilated. Right Atrium: The right atrium is normal in size. Mitral Valve: Mild to moderate mitral regurgitation. No mitral valve stenosis. There is mild mitral calcification. There is mild to moderate mitral thickening. There is mild mitral thickening. There is moderate posterior annular calcification and mild anterior annular calcification. Aortic Valve: Moderate aortic regurgitation is present. There is no aortic stenosis. Aortic leaflets exhibit mild calcification. The aortic valve is trileaflet. Tricuspid Valve: Tricuspid valve leaflets are structurally normal. Trivial tricuspid regurgitation. Pulmonary artery pressure cannot be Patient: LEILANI BARRERA Study Date: 10/08/2018 Page 2 of 3 10:38 AM assessed due to inadequate TR signal. Pulmonic Valve: Trivial pulmonic valve regurgitation is present. Aorta: The aortic root size in 2D measures 2.8 cm. The aortic root exhibits normal size. The ascending aorta measures 3.2 cm. Ascending aorta is normal in size. Aorta Measurements AoRoot, 2D is 2.8 cm. IVC: The inferior vena cava is normal in size and course. Pericardium: No pericardial effusion. Exam Details Procedure Ordered: Echo Procedure Status: Routine study Image Quality: Adequate Facility Location: Cardiac Echo 1 (No Signature Object) Patient: LEILANI BARRERA Study Date: 10/08/2018 Page 3 of 3 10:38 AM [id number]
--- NOTE | 2018-10-08 13:10 | HOSPPROG ---
Hospitalist Progress Note Assessment/Plan: 88 yo F with PMH that includes CAD with recent PCI as well as a fib, PVD, DM2 presenting with left leg weakness found to be due to acute CVA. 1st encounter, chart reviewed. * acute CVA -stroke is of the right parietal cortex and right caudate head -likely in the setting of either holding anticoagulation or possibly from a cardiac catheterization procedure -she is back on anticoagulation (Xarelto and aspirin therapy) -CTA of the head and neck shows extensive plaque which is greater than 50% -Blood pressure goal < 220/120 x 48 hours then < 140/90 -reviewed telemetry -afib w/o RVR -if she has further procedures she should be bridged with low molecular weight heparin * coronary artery disease -history of multiple stents and three-vessel CABG -Dr Neff to see * atrial fibrillation, rate controlled * peripheral vascular disease -she has a history carotid disease, fem-pop bypass in the past * chronic systolic congestive heart failure -echo shows ef of 66% -diuretics on hold due to low blood pressure reading *left knee pain, left ankle sprain -reviewed imaging, knee shows a small knee effusion-message left for ortho to see -she's been a very active lady and is hoping to be able to return home -ice three times daily *hyponatremia -mild at 131 * diabetes type 2 -recent A1c of 5.9 * hyperlipidemia -statin therapy * hypertension -will allow permissive htn in the setting of a stroke Plan: Inpatient rehab has been ordered. She is very anxious to return to her own home but suspect she may need a skilled nurse nursing facility if unable to go to inpatient rehab. Subjective: Senia is feeling fine except for left knee pain. Objective: Vital Signs Temp Pulse Resp BP Pulse Ox 36.4 C 61 20 106/53 L 100 10/08/18 11:24 10/08/18 11:24 10/08/18 11:24 10/08/18 11:24 10/08/18 11:24 Laboratory Results 10/08/18 04:26 10/07/18 10/08/18 10/09/18 05:59 05:59 05:59 Intake Total 200 400 Output Total 100 400 Balance 100 0 - Physical Exam Constitutional: uncomfortable Eyes: PERRL Ears, Nose, Mouth, Throat: hearing normal Cardiovascular: irregularly irregular, No tachycardia Respiratory: no respiratory distress Gastrointestinal: normoactive bowel sounds Skin: warm Musculoskeletal: other (Left knee with swelling) Neurologic: AAOx3, sensation intact bilaterally, weakness (Generalized), No pronator drift, No facial droop Psychiatric: interacting appropriately, not anxious, not encephalopathic ICD10 Worksheet Patient Problems: Problems Problem Status Onset Fall from ground level Acute Left ankle sprain Acute Left knee pain Acute Left leg weakness Acute Chronic atrial fibrillation Acute Coronary artery disease Acute
--- NOTE | 2018-10-08 13:57 | PDCARPN ---
Cardiology Progress Note Assessment/Plan: Ms. Cardona is an 88-year-old female with a history of CAD, prior 3-vessel CABG in 2005, staged interventions of the principal diagonal branch of the LAD and circumflex in 2016, and chronic atrial fibrillation. She underwent a cardiac catheterization on October 05. That study demonstrated 3-vessel [place] CAD. Her UNGER to LAD graft was patent. Her saphenous vein grafts had been demonstrated to be occluded on a previous study. The stented portion of the circumflex was patent. The principal diagonal branch stents were patent but there was a new high-grade stenosis immediately distal to the stented segment. She underwent repeat PCI with placement of a single stent. She was discharged uneventfully 2 days ago. However, yesterday she noticed left leg weakness and tingling after she woke up. She went to her front door to let a friend in. She was using her walker but could not support herself and had a controlled descent to the floor. She was brought to the emergency room and an MRI has confirmed 2 areas of lacunar infarction in the right caudate and right posterior cortex. Her left leg weakness persists. The 2 possible etiologies for her stroke are atheroembolism related to passage of catheters across the aortic arch vs thromboembolism related to her chronic atrial fibrillation and the fact that her systemic anticoagulation had been held for her catheterization/PCI. I think the most likely source is thromboembolism related to her A-fib/anticoagulation hold. I would have expected symptoms immediately after her procedure if it was atheroembolism. She is receiving physical therapy. An echocardiogram performed this morning demonstrates normal left ventricular systolic function and age-related valvular changes without hemodynamically significant valvular dysfunction. There was no evidence for intracardiac thrombus. However, the left atrial appendage cannot be visualized via transthoracic echo. There is no indication for a transesophageal echo. Her systemic anticoagulation has been resumed and she is on dual anti-platelet therapy for her recent stent placement. No additional cardiac testing is needed. She has a follow-up appointment with Dr. Armani Madison on October 19 at 1:30 p.m. in our [place] office. Please call if any additional questions arise. 10/08/18 13:49 Subjective: No cardiac complaints. Left leg still weak. Objective: Vital Signs (8 Hrs) Temp Pulse Resp BP Pulse Ox 10/08/18 11:24 36.4 C 61 20 106/53 L 100 10/08/18 07:54 36.6 C 76 25 H 134/67 H 100 Intake/Output (24 Hrs) 10/07/18 10/08/18 10/09/18 05:59 05:59 05:59 Intake Total 200 400 Output Total 100 400 Balance 100 0 Intake: Oral (ml) 200 400 Output: Urine (ml) 100 400 Bedside Commode 100 100 Toilet 300 Other: Weight 56.699 kg 56.699 kg Intake Quantity Yes Sufficient Number of Voids Bedside Commode 2 1 Toilet 2 2 Post Void Residual Scan Volume (ml) Bedside Commode 18 Result Diagrams: 10/07/18 16:11 10/08/18 04:26 - Physical Exam Constitutional: WDWN, no apparent distress Eyes: anicteric sclera Ears, Nose, Mouth, Throat: moist mucous membranes Cardiovascular: no murmurs, irregularly irregular Respiratory: clear to auscultate bilat Gastrointestinal: normoactive bowel sounds, no tenderness, no masses Skin: no edema Neurologic: AAOx3 Psychiatric: not anxious ICD10 Worksheet Patient Problems: Problems Problem Status Onset Fall from ground level Acute Left ankle sprain Acute Left knee pain Acute Left leg weakness Acute Chronic atrial fibrillation Acute Coronary artery disease Acute
--- NOTE | 2018-10-08 16:05 | ASMTCMCOM ---
CM Note CM Note Notes: Pt admitted through ED yesterday with left lower extremity weakness and left ankle sprain following a fall from suspected stroke. CM met with pt in her room and also spoke to son Frederick Cardona [phone] by phone to explain to both PT and OT's recommendation that she be D/C'd to an inpatient rehab following 3 midnights. Pt chooses [facility] Inpatient Re[facility], and CM spoke with them. They can most likely take her but suggests she have a back-up facility chosen just in case. CM has discussed this with pt and left a list in her room for her to peruse and make a second choice. Son is coming in to see her this evening and he will assist, though pt is cognitively intact and can ultimately choose for herself. Pt uses a walker at home, where she lives independently in [place], for unsteadiness. She also uses 2L of oxygen at home. CM will follow up with pt tomorrow to see which facility she has chosen as her second choice and will continue to follow. GEORGE D/C plan: Inpatient Rehab Date Signed: 10/08/2018 04:04 PM Electronically Signed By:Margy Hein
[2018-10-08] MEDS: ACETAMINOPHEN 500 MG TAB PO PRN (18:27)
[2018-10-08] MEDS: RIVAROXABAN 15 MG TAB PO SCH (19:06)
[2018-10-08] MEDS: ATORVASTATIN CALCIUM 40 MG TAB PO SCH (19:06)
[2018-10-08] MEDS: PSYLLIUM METAMUCIL 1 PKT PO SCH (19:06)
[2018-10-08] MEDS: LATANOPROST 0.005% 2.5 ML OPHT DROPS EACHEYE SCH (19:43)
[2018-10-09] MEDS: LEVOTHYROXINE 100 MCG TAB PO SCH (07:24)
[2018-10-09] MEDS: PANTOPRAZOLE SODIUM 40 MG TAB PO SCH (08:37)
[2018-10-09] MEDS: CALCIUM CARBONATE 500 MG TAB PO SCH ×2 (08:37→20:47)
[2018-10-09] MEDS: CYANO/VITAMIN B12 1000 MCG TAB PO SCH (08:37)
[2018-10-09] MEDS: CLOPIDOGREL BISULFATE 75 MG TAB PO SCH (08:37)
[2018-10-09] MEDS: CHOLECALCIFEROL VIT D3 1,000 UNITS TAB PO SCH ×2 (08:37→20:47)
[2018-10-09] MEDS: PRESERVISION AREDS2 FORMULA EYE VIT 1 EACH PO SCH ×2 (08:37→17:54)
[2018-10-09] MEDS: ASPIRIN 81 MG CHEWABLE TAB PO SCH (08:37)
[2018-10-09] MEDS: DORZOLAMIDE/TIMOLOL 10 ML OPHT.BTL EACHEYE SCH ×2 (08:38→20:47)
[2018-10-09] MEDS: BRIMONIDINE 0.2% 5 ML OPHT.BTL EACHEYE SCH ×2 (08:38→20:46)
--- NOTE | 2018-10-09 09:59 | ASMTCMCOM ---
CM Note CM Note Notes: Met with patient who would also consider [facility] Inpatient rehab. Information provided. CM to follow for needs. [facility] inpatient versus other facility pending acceptance. Plan: Inpatient rehab for post stroke care. Date Signed: 10/09/2018 09:58 AM Electronically Signed By:Jeny Rosario RN
--- NOTE | 2018-10-09 10:45 | NEUROPROG ---
Assessment: [id number] - Neurology Consult: - CC: F/U for Stroke - Narrative Summary: 10/08/18: Pt with PMHx of afib on xarelto, CAD, CHF, HTN, HLD. Pt underwent cardiac cath on 10/05/18 (her anticoagulation was held for several days prior to the procedure). On 10/07/18 she developed left leg tingling, weakness, and pain. Brain MRI showed right sided small strokes (2 areas) that seemed to explain the left leg weakness. CTA head/neck showed bilateral carotid stenosis at or greater than 50%. LDL 38 on statin. Pt on Xarelto and plavix prior to admission. She reported she was also placed on aspirin 81 mg qd for a planned 4 weeks after the stent was placed. Neurologic exam showed left leg weakness. Her stroke is likely either from holding anticoagulation in setting of afib or possibly from the cardiac cath procedure. She is now back on anticoagulation. I doubt her right carotid stenosis caused the stroke but it is possible. However, pt declined any referral for carotid surgery evaluation at this time. Given her advanced age and underlying medical issues, I feel she would be a high risk surgical patient. - HPI: F/U 10/09/18. TTE showed no concerning findings. Pt stable. No new complaints. Neurology will sign off. 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 No acute hemorrhage, hydrocephalus, mass effect, or herniation. Moderate cerebral and cerebellar atrophy. Multiple nonspecific hyperintense T2/FLAIR signal abnormalities in the white matter of bilateral cerebral hemispheres. Differential diagnosis includes severe microvascular ischemic gliosis, versus less likely post-infectious/post-inflammatory sequela. (I personally visualized the images on 10/08/18) - 10/07/18- CTA head/neck: There is extensive atherosclerotic calcific plaque, with a 55% mean diameter stenosis of the proximal right internal carotid artery, and a 50% mean diameter stenosis of the proximal left internal carotid artery. 2. Patent vertebral arteries. There are moderate focal stenoses involving each of the supraclinoid internal carotid arteries. There is no intra-arterial thrombus identified. - 10/08/18- TTE: no cardiac thrombus noted - Assessment: 1. 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 She is now back on anticoagulation. - 2. B/L Carotid stenosis >= 50%: I doubt her right carotid stenosis caused the stroke but it is possible. However, pt declined any referral for carotid surgery evaluation at this time. Given her advanced age and underlying medical issues, I feel she would be a high risk surgical patient. - Plan: - Continue Xarelto for stroke prevention (stroke on 10/07/18 occurred after anticoagulation was briefly held a few days for a cardiac procedure) - aspirin and plavix are being used for post-cardiac stent, OK to stop them if and when cardiology feels it is no longer needed - Blood pressure goal < 220/120 x 24 hours then < 140/90 - H1AC < 7.0 - LDL < 70 (38), continue statin - PT/OT/Speech to determine rehab needs - F/U in neurology clinic 1-6 weeks after hospital discharge - Neurology will sign off - 35 min spent with patient, majority of time spent counseling on her condition and prognosis. Objective: Vital Signs Temp Pulse Resp BP Pulse Ox 36.5 C 75 20 145/60 H 100 10/09/18 07:18 10/09/18 07:18 10/09/18 07:18 10/09/18 07:18 10/09/18 07:18 Laboratory Results 10/08/18 04:26 10/08/18 10/09/18 10/10/18 05:59 05:59 05:59 Intake Total 200 400 800 Output Total 100 700 300 Balance 100 -300 500 Allergies/Adverse Reactions: candesartan Allergy (Verified 08/18/16 07:28) sulfamethoxazole Allergy (Verified 08/18/16 07:30) trimethoprim Allergy (Verified 08/18/16 07:28)
--- NOTE | 2018-10-09 15:37 | HOSPPROG ---
Hospitalist Progress Note Assessment/Plan: * Acute CVA -due to holding Xarelto vs. atheroembolism with cardiac cath -continue ASA/Plavix/Xarelto - confirmed with Dr. Joseph * Carotid stenosis 50% - might be symptomatic -patient denies surgical eval -continue statin * CAD/CABG/recent stent -ASA/Plavix for at least 30 days, maybe longer * Afib - rate controlled -Xarelto * PVD s/p fem-pop bypass * Hyponatremia -check urine sodium * Glaucoma with blindness Subjective: Leg is stable neuro exam Objective: Vital Signs Temp Pulse Resp BP Pulse Ox 36.8 C 73 14 133/58 H 97 10/09/18 15:19 10/09/18 15:19 10/09/18 15:19 10/09/18 15:19 10/09/18 15:19 Laboratory Results 10/08/18 04:26 10/08/18 10/09/18 10/10/18 05:59 05:59 05:59 Intake Total 848 825 8950 Output Total 100 700 800 Balance 100 -300 400 d/w dr. Joseph regarding anti-platelet plan MRI Brain - acute lacunar infarcts - Physical Exam Constitutional: no apparent distress, appears nourished, not in pain Cardiovascular: regular rate and rhythym, no murmur, rub, or gallop Respiratory: no respiratory distress, no rales or rhonchi, clear to auscultation Gastrointestinal: normoactive bowel sounds, soft, non-tender abdomen, no palpable masses Skin: no rashes or abrasions, no fluctuance, no induration Neurologic: AAOx3, weakness (lle 4/5) Psychiatric: interacting appropriately, not anxious, not encephalopathic, thought process linear ICD10 Worksheet Patient Problems: Problems Problem Status Onset Left knee pain Acute Fall from ground level Acute Left ankle sprain Acute Left leg weakness Acute Chronic atrial fibrillation Acute Coronary artery disease Acute
[2018-10-09] MEDS: ATORVASTATIN CALCIUM 40 MG TAB PO SCH (20:46)
[2018-10-09] MEDS: LATANOPROST 0.005% 2.5 ML OPHT DROPS EACHEYE SCH (20:47)
[2018-10-09] MEDS: PSYLLIUM METAMUCIL 1 PKT PO SCH (20:48)
[2018-10-09] MEDS: RIVAROXABAN 15 MG TAB PO SCH (20:48)
[2018-10-10] MEDS: ACETAMINOPHEN 500 MG TAB PO PRN ×2 (02:28→10:17)
[2018-10-10] MEDS: LEVOTHYROXINE 100 MCG TAB PO SCH (06:43)
[2018-10-10] MEDS: ASPIRIN 81 MG CHEWABLE TAB PO SCH (08:59)
[2018-10-10] MEDS: BRIMONIDINE 0.2% 5 ML OPHT.BTL EACHEYE SCH ×2 (08:59→19:49)
[2018-10-10] MEDS: CHOLECALCIFEROL VIT D3 1,000 UNITS TAB PO SCH ×2 (08:59→20:24)
[2018-10-10] MEDS: PANTOPRAZOLE SODIUM 40 MG TAB PO SCH (08:59)
[2018-10-10] MEDS: CYANO/VITAMIN B12 1000 MCG TAB PO SCH (08:59)
[2018-10-10] MEDS: CLOPIDOGREL BISULFATE 75 MG TAB PO SCH (08:59)
[2018-10-10] MEDS: PRESERVISION AREDS2 FORMULA EYE VIT 1 EACH PO SCH ×2 (08:59→20:24)
[2018-10-10] MEDS: CALCIUM CARBONATE 500 MG TAB PO SCH ×2 (08:59→20:24)
[2018-10-10] MEDS: DORZOLAMIDE/TIMOLOL 10 ML OPHT.BTL EACHEYE SCH ×2 (09:00→20:19)
--- NOTE | 2018-10-10 13:41 | HOSPPROG ---
Hospitalist Progress Note Assessment/Plan: * Acute CVA -due to holding Xarelto vs. atheroembolism with cardiac cath -continue ASA/Plavix/Xarelto - confirmed with Dr. Joseph * Carotid stenosis 50% - might be symptomatic -patient declines surgical eval -continue statin * CAD/CABG/recent stent -ASA/Plavix for at least 30 days, maybe longer * Afib - rate controlled -Xarelto * PVD s/p fem-pop bypass * Hyponatremia -urine sodium c/w hypovolemia -IVF x 1 Liter * Glaucoma with blindness Subjective: No new complaints. Objective: Vital Signs Temp Pulse Resp BP Pulse Ox 36.6 C 74 16 129/65 H 94 10/10/18 07:01 10/10/18 07:01 10/10/18 07:01 10/10/18 07:01 10/10/18 09:00 Laboratory Results 10/08/18 04:26 10/09/18 10/10/18 10/11/18 05:59 05:59 05:59 Intake Total 400 2200 600 Output Total 700 1050 Balance -300 1150 600 - Physical Exam Constitutional: no apparent distress, appears nourished, not in pain Cardiovascular: regular rate and rhythym, no murmur, rub, or gallop Respiratory: no respiratory distress, no rales or rhonchi, clear to auscultation Gastrointestinal: normoactive bowel sounds, soft, non-tender abdomen, no palpable masses Skin: no rashes or abrasions, no fluctuance, no induration Musculoskeletal: No full muscle strength Neurologic: AAOx3, weakness (LLE) Psychiatric: interacting appropriately, not anxious, not encephalopathic, thought process linear ICD10 Worksheet Patient Problems: Problems Problem Status Onset Fall from ground level Acute Left ankle sprain Acute Left knee pain Acute Left leg weakness Acute Chronic atrial fibrillation Acute Coronary artery disease Acute
[2018-10-10] MEDS ORDERED: NS 1,000 ML IV SCH (13:45)
[2018-10-10] MEDS: ATORVASTATIN CALCIUM 40 MG TAB PO SCH (20:24)
[2018-10-10] MEDS: RIVAROXABAN 15 MG TAB PO SCH (20:25)
[2018-10-10] MEDS: PSYLLIUM METAMUCIL 1 PKT PO SCH (20:25)
[2018-10-10] MEDS: LATANOPROST 0.005% 2.5 ML OPHT DROPS EACHEYE SCH (20:37)
[2018-10-11] MEDS: LEVOTHYROXINE 100 MCG TAB PO SCH (06:33)
[2018-10-11 07:21] VITALS: BP 165/91
[2018-10-11] MEDS: CHOLECALCIFEROL VIT D3 1,000 UNITS TAB PO SCH (07:24)
[2018-10-11] MEDS: ASPIRIN 81 MG CHEWABLE TAB PO SCH (07:24)
[2018-10-11] MEDS: PANTOPRAZOLE SODIUM 40 MG TAB PO SCH (07:24)
[2018-10-11] MEDS: CYANO/VITAMIN B12 1000 MCG TAB PO SCH (07:25)
[2018-10-11] MEDS: CLOPIDOGREL BISULFATE 75 MG TAB PO SCH (07:25)
[2018-10-11] MEDS: PRESERVISION AREDS2 FORMULA EYE VIT 1 EACH PO SCH (07:25)
[2018-10-11] MEDS: CALCIUM CARBONATE 500 MG TAB PO SCH (07:25)
[2018-10-11] MEDS: DORZOLAMIDE/TIMOLOL 10 ML OPHT.BTL EACHEYE SCH (07:26)
[2018-10-11] MEDS: BRIMONIDINE 0.2% 5 ML OPHT.BTL EACHEYE SCH (07:26)
--- NOTE | 2018-10-11 09:55 | PDIAF ---
- Diagnosis Diagnosis: stroke, recent cardiac stent Code Status: Full Code - Medication Management Discharge Medications: electronically signed and located in the Home Medication List. - Orders Services needed: Physical Therapy, Occupational Therapy Diet Recommendation: no restrictions on diet Additional Instructions: Post cardiac cath standard precautions CPAP qhs - Follow Up Care Current Providers and Referrals: Ranjan Fernandez DO [Medical Doctor] - (1-6 weeks after hospital discharge) Leslie Bañuelos MD [Primary Care Provider] - As per Instructions Armani Madison MD [Medical Doctor] - 10/19/18 1:00 am
[2018-10-11] MEDS ORDERED: FUROSEMIDE 40 MG TAB PO SCH (10:00)
[2018-10-11] MEDS ORDERED: SPIRONOLACTONE 25 MG TAB PO SCH (10:00)
--- NOTE | 2018-10-11 11:57 | ASMTLACE ---
LACE Length of stay for Answers: 3 days current admission Comorbidities - select Answers: Congestive heart failure all that apply Coronary Artery Disease Diabetes (uncontrolled or controlled) Opioid dependence / Chronic pain Peripheral vascular disease Previous myocardial infarction Other Notes: AFib; HTN # of Emergency department Answers: 1-2 visits in the last 6 months Score: 16 Date Signed: 10/11/2018 11:55 AM Electronically Signed By:Jeny Rosario RN
--- NOTE | 2018-10-11 12:04 | ASMTCMCOM ---
CM Note CM Note Notes: Patient medically cleared for discharge to inpatient rehab s/p CVA. No available beds at [facility] and patient is agreeable to go to [facility] inpatient rehab. RN to call report, patient to transfer via wheelchair at 2 pm. Final orders via allscripts. CM available should needs arise. Plan: Inpatient rehab. Date Signed: 10/11/2018 12:03 PM Electronically Signed By:Jeny Rosario RN
--- NOTE | 2018-10-12 03:48 | GDS ---
[f rep st] DISCHARGE SUMMARY DISCHARGE DIAGNOSES: 1. Acute stroke. 2. Possible symptomatic carotid stenosis 50%. 3. Coronary artery disease, status post coronary artery bypass graft and very recent stent. 4. History of atrial fibrillation. 5. Peripheral vascular disease status post femoral-popliteal bypass. 6. Hyponatremia. 7. Obstructive sleep apnea on CPAP. HISTORY: The patient is an 88-year-old female, who presented with an acute stroke, predominant left leg weakness. She had just had a cardiac catheterization a couple of days prior to onset of symptoms . Her Xarelto was held for the catheterization. It was not clear if the stroke was due to holding o f Xarelto or atheroembolism as a result of the cardiac catheterization. She is now on aspirin, Plavi x and Xarelto, and this plan was confirmed with both Cardiology and Neurology. Per Neurology, her ri sk of hemorrhagic conversion is relatively small on 3 agents. She was found to have carotid stenosis approximately 50%, which may be a symptomatic lesion. She was offered a surgical evaluation for pos sible carotid endarterectomy and she declined. She would like to continue with medical management. Incidentally noted to have hyponatremia during this hospitalization. Urine sodium was low consistent with hypovolemia. She was given IV fluid, normal saline, and her hyponatremia resolved. DISCHARGE MEDICATIONS: Please see computerized record for full detailed list. There are no new medi cations given at time of hospital discharge. ADDITIONAL DISCHARGE INSTRUCTIONS: 1. CPAP q.h.s. for ANALI. 2. Follow up with Dr. Ortiz scheduled October 19, 2018, at 1 p.m. Follow up with Dr. Ranjan Fernandez of [facility] 1-6 weeks post discharge. 3. [facility]. Greater than 30 minutes' time was spent arranging this discharge. Patient was seen and examined by bruce thornton on the day of discharge. /[id number]/MODL
== END 2018-10-11 14:15 | DRG 65 ==
LOC: EDUNIT# → F3N 18:07 → OBSVTOIN 18:12
PROVIDERS: ADMIT Internal Medicine; ATTEND Internal Medicine
DX: I63.81 Other cerebral infarction due to occlusion or stenosis of small artery (principal); I65.29 Occlusion and stenosis of unspecified carotid artery; I48.91 Unspecified atrial fibrillation; I25.10 Atherosclerotic heart disease of native coronary artery without angina pectoris; E03.9 Hypothyroidism, unspecified; E87.1 Hypo-osmolality and hyponatremia; I11.0 Hypertensive heart disease with heart failure; I50.22 Chronic systolic (congestive) heart failure; E11.51 Type 2 diabetes mellitus with diabetic peripheral angiopathy without gangrene; G47.33 Obstructive sleep apnea (adult) (pediatric); H40.9 Unspecified glaucoma; Z95.5 Presence of coronary angioplasty implant and graft; Z95.1 Presence of aortocoronary bypass graft; Z96.653 Presence of artificial knee joint, bilateral; Z96.611 Presence of right artificial shoulder joint; Z96.612 Presence of left artificial shoulder joint; Z87.891 Personal history of nicotine dependence
CPT/HCPCS: 70551-PN; 92523-GN; 97116-GP; 97162-GP; 97165-GO; 97530-GP; 97535-GO; Q9967

== ENCOUNTER 2018-10-11 12:35 | Inpatient (IN) | payer OTHER, MEDICARE ==
[2018-10-11] MEDS: PRESERVISION AREDS2 FORMULA EYE VIT 1 EACH PO SCH (17:35)
--- NOTE | 2018-10-11 17:57 | GHP ---
[f rep st] HISTORY AND PHYSICAL DATE OF ADMISSION: 10/11/2018 DATE OF EVALUATION: 10/11/2018 TIME OF EVALUATION: 1615 REFERRING FACILITY: [facility]. REFERRING PHYSICIAN: Elvis Salcido MD CONSULTING PHYSICIANS: She was seen by Dr. Fernandez with Neurology and Dr. Joseph with Cardiology. REHABILITATION DIAGNOSIS: Cerebrovascular accident with left-sided weakness. Impairment group is 1.1. Etiologic diagnosis is left body involvement (right brain). Date of onset is 10/07/2018. HISTORY OF PRESENT ILLNESS: This patient was admitted to [facility] on 10/07/2018, with left lower extremity tingling, weakness and pain. She had a cardiac catheterization done 2 days prior and her rivaroxaban had been held for the procedure. She takes the rivaroxaban for atrial fibrillation. She had fallen with the onset of her left weakness and had left ankle and knee pain. Evaluation included brain MRI, which showed 2 lacunar infarcts, in the right caudate head and the right parietal lobe. Angiography showed 55% stenosis of the proximal right internal carotid artery and 50% stenosis of the proximal left internal carotid artery. Brain imaging also showed moderate cerebral and cerebellar atrophy and bilateral white-matter ischemic changes. She had a transthoracic echocardiogram done, which showed moderate mitral regurgitation and aortic regurgitation, mildly dilated left atrium, an ejection fraction of 55% and no interatrial shunt or cardiac thrombus. She had hyponatremia which was considered to be hypovolemic. She had fluid resuscitation with IV normal saline and her sodium normalized. OTHER STUDIES AND LABS: CBC showed a slightly low MCH and MCHC, and an elevated RDW. Otherwise, it was unremarkable. Serum chemistry showed hyponatremia with a sodium of 130 on 10/07/2018, and 131 on 10/08/2018. Lipid panel was done, which showed an LDL of 38. Sodium corrected to 136 as of 2018. Urinalysis was consistent with dehydration on 10/07/2018, with a specific gravity greater than 1.035. It was otherwise unremarkable. Random urine sodium was done on 10/09/2018, which was low at 7. PRECAUTIONS: She is a fall risk. ACTIVE COMORBIDITIES: She has no tier 1, tier 2, or tier 3 comorbidities. PAST MEDICAL HISTORY: 1. Atrial fibrillation. 2. Coronary artery disease. 3. Congestive heart failure. 4. Hypertension. 5. Dyslipidemia. 6. Obstructive sleep apnea. 7. Right eye blindness due to glaucoma. PAST SURGICAL HISTORY: 1. Coronary artery bypass surgery. 2. Hernia. 3. Coronary artery stenting. 4. Femoral-popliteal bypass on the left. 5. Knee replacement on the left. 6. Bilateral shoulder surgery. PRE-HOSPITAL MEDICATIONS: 1. Atorvastatin 80 mg p.o. at bedtime. 2. Brimonidine 0.2% 1 drop each eye twice daily. 3. Clopidogrel 75 mg p.o. daily. 4. Cyanocobalamin 1 tab p.o. daily. 5. Furosemide 40 mg p.o. daily. 6. Rivaroxaban 15 mg p.o. at bedtime. 7. Spironolactone 12.5 mg p.o. daily. 8. Acetaminophen 650 mg p.o. q.8 hours p.r.n. 9. Cholecalciferol 1000 units p.o. twice daily. 10. Pantoprazole 40 mg p.o. daily. 11. Aspirin 81 mg p.o. daily. 12. Calcium citrate 200 mg p.o. twice daily. 13. Calcium polycarbophil supplement 625 mg p.o. at bedtime. 14. Dorzolamide/timolol 1 drop each eye twice daily. 15. Latanoprost 0.005% 1 drop each eye at bedtime. 16. Levothyroxine 100 mcg p.o. daily. 17. PreserVision multivitamin 1 p.o. twice daily. ADMISSION MEDICATIONS: 1. Acetaminophen 650 mg p.o. q.8 hours p.r.n. 2. Aspirin 81 mg p.o. daily. 3. Atorvastatin 80 mg p.o. at bedtime. 4. Brimonidine 0.2% 1 drop in each eye twice daily. 5. Calcium citrate 200 mg p.o. twice daily. 6. Calcium polycarbophil 625 mg p.o. at bedtime. 7. Cholecalciferol 1000 units p.o. twice daily. 8. Clopidogrel 75 mg p.o. daily. 9. Cyanocobalamin 1 tab p.o. daily. 10. Dorzolamide/timolol 1 drop each eye twice daily. 11. Furosemide 40 mg p.o. daily. 12. Latanoprost 0.005% 1 drop each eye at bedtime. 13. Levothyroxine 100 mcg p.o. daily. 14. Pantoprazole 40 mg p.o. daily. 15. Rivaroxaban 15 mg p.o. at bedtime. 16. Spironolactone 12.5 mg p.o. daily. 17. PreserVision multivitamin 1 p.o. twice daily. ALLERGIES: Listed to candesartan, sulfamethoxazole and trimethoprim. PSYCHOSOCIAL HISTORY: She lives alone at an independent-living facility. She has a local son who is involved in her care. 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 She has a history of tobacco smoking, but it is remote. FAMILY HISTORY: Noncontributory. REVIEW OF SYSTEMS: She has noted improvement in her left lower extremity weakness. She denies loss of sensation. She denies difficulty swallowing. She denies vision changes. She has a cough with occasional scant mucus. It has been chronic. She has no fevers or chills. She has no dyspnea. The cough does not awaken her at night, though it is worse when she lies down. She has no chest pain and does not notice palpitations. There is no nausea, vomiting, constipation, or diarrhea and she has a good appetite. There is no urinary frequency or dysuria. She has pain and swelling of the left ankle and she has some pain of the left knee, but there is no other joint pain or joint swelling. There is no skin rash or skin breakdown. She is in good spirits. Otherwise, a 10-point review of systems is negative. PHYSICAL EXAM: VITAL SIGNS: Blood pressure is 115/65, heart rate is 83, respiratory rate is 16, oxygen saturation is 95% on room air, temperature is 36.6 degrees centigrade. Her weight is 60.3 kg for a body mass index of 22.5. GENERAL: This is a well-nourished, well-developed woman who appears her chronologic age, lying in bed, dressed in street clothes, cooperative and in no acute distress. HEENT: Extraocular movements are intact. Pupils are equal, round and reactive to light. Mucous membranes are moist. Dentition is in good condition. She has an uncrowded airway, Mallampati class 2. There is no oropharyngeal erythema or exudate and no posterior oropharyngeal mucus. NECK: Supple. HEART: There is a regular rate and rhythm. There is a diastolic murmur audible at the right sternal border. There is no JVD. LUNGS: There are few fine crackles on inspiration on the right lower lobe. Otherwise, lungs are clear auscultation bilaterally. There is trace edema to the right lower extremity and there is 2+ pitting edema to the left lower ankle. ABDOMEN: Soft , nontender and nondistended with normoactive bowel sounds and no hepatosplenomegaly. EXTREMITIES: There is no cyanosis or clubbing. There is 2 + swelling to the left ankle. There is tenderness to the left calf. NEUROLOGIC : She is alert and oriented x3. Cranial nerves 2-12 are grossly intact. On motor exam, her strength is 4+ on the left upper and lower extremities at the biceps, triceps, hand kiss mixer, hip flexor, quadriceps, foot plantar flexion, foot dorsiflexion and great toe dorsiflexion. Strength is 5/5 overall on the left upper and lower extremities. Sensation is intact to light touch. There is no extinction to double simultaneous stimulation. Deep tendon reflexes are 2+ bilaterally at the Achilles and patellar tendons. Her plantar reflex is upgoing on the left and indeterminate on the right. SKIN: She has bruising on the left lower extremity. Otherwise, skin is clean, dry and intact. CURRENT LEVEL OF FUNCTION per the preadmission screen. Regarding diet, feeding and swallowing, she was on a regular diet with thin liquids. Grooming was done with contact guard assist and verbal cues to stand at the bedside table. Lower body dressing required minimal assist and cues. Toileting required contact guard assist and cues. She was continent of bowel and bladder. Bed mobility required minimal assistance. Transfers were done with contact guard assist and cues with a front-wheeled walker to the commode. Otherwise, she required minimal assist and cues. She required contact guard assist for balance. Endurance was fair to good. She was able to ambulate 50 feet with minimal assist and a front-wheeled walker with cues for sequencing and upright posture. She was slightly retropulsive. On today's exam, there are no significant changes from the preadmission screen. IMPRESSION: This is an 88-year-old woman who suffered a stroke following cardiac catheterization. Imaging revealed lacunar infarctions in the right caudate and parietal lobes. The stroke is most likely due to atrial fibrillation while not being on anticoagulation for her recent cardiac catheterization. It is also possible that there were emboli dislodged due to her cardiac catheterization. She was also found to have 55% stenosis of the proximal right internal carotid artery and 50% stenosis of the proximal left internal carotid artery. She has had considerable improvement in her motor strength since her stroke. Hospital complications included hyponatremia, which was repleted with IV fluids. She was dehydrated. She had poor sleep overnight with the IV hydration due to frequent urination. She has a cough, which is chronic and does not awaken her from sleep, but is worse when she is supine. She has low vision in her right eye due to history of glaucoma. Her goal is to complete a rehabilitation stay and then return to her independent -living facility with home health therapies and supportive services in place. For a safe discharge, she will need to advance to modified independent level with self-care and mobility, as well as instrumental activities of daily living using the least restrictive device. She will need support at home for transportation and cleaning services. She will have therapy with physical therapy and occupational therapy for 90 minutes per day for each discipline on 5-7 days of the week. Her expected duration of stay is 10-12 days. It is anticipated that upon discharge, she will continue to benefit from home health services including nursing, occupational therapy and physical therapy. Additionally, she may benefit from a stroke support group. PLAN: 1. Cerebrovascular accident with left weakness and balance impairment. PT and OT to optimize mobility and ADLs toward the modified independent level. 2. Cough. Imaging ruled out sinusitis and there was no sign of postnasal drainage on exam. She is on a proton pump inhibitor, which makes gastroesophageal reflux disorder less likely as an etiology. I will obtain a chest x-ray to further clarify why she might be coughing. Consider Tessalon cough suppressant or bronchodilator inhaler depending on the results. 3. Ankle sprain. Continue acetaminophen as needed. Continue icing as needed. Await further assessment from Physical Therapy as to whether it is limiting functionally and if so, will discuss various treatment approaches. 4. Coronary artery disease, status post stenting. Aspirin was added to her medication regimen when she underwent angioplasty on 10/05/2018. This is to continue for approximately a month. 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 5. Atrial fibrillation. Continue rivaroxaban. She does not appear to be in need of rate control. 6. Question of congestive heart failure. She is chronically on spironolactone and furosemide. Await result of chest x-ray. On clinical exam, she does not appear to be fluid overloaded. 7. Obstructive sleep apnea. She will bring her CPAP from home. 8. Hypothyroidism. Continue levothyroxine supplementation. 9. Glaucoma. Continue multiple eyedrops. There will be further assessment per PT and OT regarding whether her vision impairs her function. 10. Prophylaxis. There is no need for DVT prophylaxis as she is on dual- antiplatelet therapy, as well as rivaroxaban. She had an ultrasound of the left lower extremity, which ruled out DVT. 11. Followup. She is to see Neurology in approximately 6 weeks. She is to see customer service correspondence clerk Dr. Armani Whittington scheduled for 10/19/2018. Her primary care provider is Dr. Leslie Bañuelos. /[id number]/MODL MTDD
[2018-10-11] MEDS: DORZOLAMIDE/TIMOLOL 10 ML OPHT.BTL EACHEYE SCH (19:41)
[2018-10-11] MEDS: BRIMONIDINE 0.2% 5 ML OPHT.BTL EACHEYE SCH (19:50)
[2018-10-11] MEDS: LATANOPROST 0.005% 2.5 ML OPHT DROPS EACHEYE SCH (19:51)
[2018-10-11] MEDS: RIVAROXABAN 15 MG TAB PO SCH (19:52)
[2018-10-11] MEDS: CALCIUM CARBONATE 500 MG TAB PO SCH ×2 (19:52→19:55)
[2018-10-11] MEDS: ATORVASTATIN CALCIUM 40 MG TAB PO SCH (19:52)
[2018-10-11] MEDS: PSYLLIUM METAMUCIL 1 PKT PO SCH (19:55)
[2018-10-11] MEDS: CHOLECALCIFEROL VIT D3 1,000 UNITS TAB PO SCH (19:57)
[2018-10-12] MEDS: ACETAMINOPHEN 325 MG TAB PO PRN ×2 (02:46→13:23)
[2018-10-12] MEDS: LEVOTHYROXINE 100 MCG TAB PO SCH (06:18)
[2018-10-12] MEDS ORDERED: SODIUM CL NASAL 45 ML BTL EACHNARE PRN (07:33)
[2018-10-12] MEDS: DORZOLAMIDE/TIMOLOL 10 ML OPHT.BTL EACHEYE SCH ×2 (08:47→20:12)
[2018-10-12] MEDS: BRIMONIDINE 0.2% 5 ML OPHT.BTL EACHEYE SCH ×2 (08:47→20:12)
[2018-10-12] MEDS: [UNRECOGNIZED DRUG - OTHER] PO SCH (08:51)
[2018-10-12] MEDS: CYANO/VITAMIN B12 1000 MCG TAB PO SCH (08:52)
[2018-10-12] MEDS: CHOLECALCIFEROL VIT D3 1,000 UNITS TAB PO SCH ×2 (08:52→20:12)
[2018-10-12] MEDS: CLOPIDOGREL BISULFATE 75 MG TAB PO SCH (08:52)
[2018-10-12] MEDS: FUROSEMIDE 40 MG TAB PO SCH (08:53)
[2018-10-12] MEDS: PRESERVISION AREDS2 FORMULA EYE VIT 1 EACH PO SCH ×2 (08:53→17:03)
[2018-10-12] MEDS: PANTOPRAZOLE SODIUM 40 MG TAB PO SCH (08:53)
[2018-10-12] MEDS: ASPIRIN 81 MG CHEWABLE TAB PO SCH (08:54)
[2018-10-12] MEDS: SPIRONOLACTONE 25 MG TAB PO SCH (08:54)
[2018-10-12] MEDS ORDERED: Herbals/Supplements -Info Only PO SCH (09:00)
--- NOTE | 2018-10-12 10:49 | PDOREHIP ---
Admission [facility] - Admission - 3 Day Assessment Period Admission Date/Day 1: 10/11/18 Day 2: 10/12/18 Day 3: 10/13/18 - Active Diagnoses Comorbidities and Co-existing Conditions at Admission: 40279. PVD or PAD - Skin Conditions Unhealed Pressure Ulcer (1 or more/Stage 1 or >)-Admission: 0. No # Stage 1 Pressure Ulcers-Admission: 0 # Stage 2 Pressure Ulcers-Admission: 0 # Stage 3 Pressure Ulcers-Admission: 0 # Stage 4 Pressure Ulcers-Admission: 0 # Unstageable Pressure Ulcers (Non-remove Dress)-Admission: 0 # Unstageable Pressure Ulcers (Slough/Eschar)-Admission: 0 # Unstageable Pressure Ulcers (Deep Tissue Injury)-Admission: 0
--- NOTE | 2018-10-12 10:49 | SOAPPROG ---
SOAP Progress Note Assessment/Plan: Assessment: Cerebrovascular accident with left weakness and balance impairment. PT and OT to optimize mobility and ADLs toward the modified independent level. Cough. Imaging ruled out sinusitis and there was no sign of postnasal drainage on exam. She is on a proton pump inhibitor, which makes gastroesophageal reflux disorder less likely as an etiology. * Chest x-ray 10/11/2018 with question of patchy infiltrate in the right lower lobe, possible tiny effusion, hyperexpansion consistent with COPD, cardiomegaly without signs of CHF. No clear etiology of cough. Ankle sprain. Continue acetaminophen as needed. Continue icing as needed. Await further assessment from Physical Therapy as to whether it is limiting functionally and if so, will discuss treatment approaches. Coronary artery disease, status post stenting. Aspirin was added to her medication regimen when she underwent angioplasty on 10/05/2018. This is to continue for approximately a month. She will continue rivaroxaban retirement. Epistaxis. Likely consequence of dual anti-platelet plus anticoagulant therapy. Initiating nasal saline 10/12/2018. Continue to monitor. Atrial fibrillation. Continue rivaroxaban. She does not appear to be in need of rate control. Question of congestive heart failure. She is chronically on spironolactone and furosemide. On clinical exam, she does not appear to be fluid overloaded. Obstructive sleep apnea. Using CPAP from home. Hypothyroidism. Continue levothyroxine supplementation. Glaucoma. Continue multiple eyedrops. There will be further assessment per PT and OT regarding whether her vision impairs her function. Prophylaxis. There is no need for DVT prophylaxis as she is on dual- antiplatelet therapy, as well as rivaroxaban. She had an ultrasound of the left lower extremity, which ruled out DVT. DISPOSITION: Intends to return to independent living facility. Planning for home OT and PT. Followup. She is to see Neurology in approximately 6 weeks. She is to see technical instructor Dr. Armani Whittington scheduled for 10/19/2018. Her primary care provider is Dr. Leslie Bañuelos. 10/12/18 11:12 Subjective: Has fatigue. Otherwise no complaints. Nurse reports that she had epistaxis. She has requested nasal saline which has been prescribed. Also has dry mouth. No fevers or chills. Still with occasional cough but no dyspnea. Objective: Vital Signs Temp Pulse Resp BP Pulse Ox 36.7 C 79 18 142/76 H 92 10/12/18 07:18 10/12/18 07:18 10/12/18 07:18 10/12/18 07:18 10/12/18 07:18 10/11/18 10/12/18 10/13/18 05:59 05:59 05:59 Intake Total 738 Output Total 1900 350 Balance -1162 -350 Physical Exam - Physical Exam General Appearance: WD/WN, alert, no apparent distress Respiratory: normal breath sounds, crackles (Expiratory, left lower lobe), No rhonchi, No wheezing Cardiac/Chest: regular rate, rhythm, systolic murmur, No JVD Skin: normal color, warm/dry Extremities: other (Left ankle with swelling and tenderness) Neuro/Psych: alert, normal mood/affect, oriented x 3 ICD10 Worksheet Patient Problems: Problems Problem Status Onset Chronic atrial fibrillation Acute Coronary artery disease Acute Fall from ground level Acute Left ankle sprain Acute Left knee pain Acute Left leg weakness Acute
[2018-10-12] MEDS: ATORVASTATIN CALCIUM 40 MG TAB PO SCH (20:11)
[2018-10-12] MEDS: PSYLLIUM METAMUCIL 1 PKT PO SCH (20:12)
[2018-10-12] MEDS: CALCIUM CARBONATE 500 MG TAB PO SCH (20:12)
[2018-10-12] MEDS: RIVAROXABAN 15 MG TAB PO SCH (20:12)
[2018-10-12] MEDS: LATANOPROST 0.005% 2.5 ML OPHT DROPS EACHEYE SCH (20:12)
[2018-10-12] MEDS: BIOTENE DRY MOUTH ORAL RINSE 237 ML BTL MM PRN (20:52)
[2018-10-13] MEDS: ACETAMINOPHEN 325 MG TAB PO PRN ×2 (00:05→13:20)
[2018-10-13] MEDS: LEVOTHYROXINE 100 MCG TAB PO SCH (06:39)
[2018-10-13] MEDS: FUROSEMIDE 40 MG TAB PO SCH (08:12)
[2018-10-13] MEDS: CLOPIDOGREL BISULFATE 75 MG TAB PO SCH (08:13)
[2018-10-13] MEDS: CALCIUM CARBONATE 500 MG TAB PO SCH ×2 (08:13→20:37)
[2018-10-13] MEDS: SPIRONOLACTONE 25 MG TAB PO SCH (08:13)
[2018-10-13] MEDS: PANTOPRAZOLE SODIUM 40 MG TAB PO SCH (08:13)
[2018-10-13] MEDS: PRESERVISION AREDS2 FORMULA EYE VIT 1 EACH PO SCH ×2 (08:13→20:36)
[2018-10-13] MEDS: CYANO/VITAMIN B12 1000 MCG TAB PO SCH (08:14)
[2018-10-13] MEDS: ASPIRIN 81 MG CHEWABLE TAB PO SCH (08:14)
[2018-10-13] MEDS: BRIMONIDINE 0.2% 5 ML OPHT.BTL EACHEYE SCH ×2 (08:15→20:36)
[2018-10-13] MEDS: [UNRECOGNIZED DRUG - OTHER] PO SCH (08:17)
[2018-10-13] MEDS: CHOLECALCIFEROL VIT D3 1,000 UNITS TAB PO SCH ×2 (08:19→20:44)
[2018-10-13] MEDS: DORZOLAMIDE/TIMOLOL 10 ML OPHT.BTL EACHEYE SCH ×2 (08:20→20:44)
[2018-10-13] MEDS: DICLOFENAC SODIUM 1% 100 GM GEL TP SCH ×3 (11:15→20:44)
--- NOTE | 2018-10-13 11:31 | SOAPPROG ---
SOAP Progress Note Assessment/Plan: Assessment: Cerebrovascular accident with left weakness and balance impairment. * Ambulated 40 ft with 4 wheeled walker, limited by fatigue and pain, abnormal gait with reduced to flexion and flatfoot id, needing assistance for balance. * Continue PT and OT to optimize mobility and ADLs toward the modified independent level. Cough. Imaging ruled out sinusitis and there was no sign of postnasal drainage on exam. She is on a proton pump inhibitor, which makes gastroesophageal reflux disorder less likely as an etiology. * Chest x-ray 10/11/2018 with question of patchy infiltrate in the right lower lobe, possible tiny effusion, hyperexpansion consistent with COPD, cardiomegaly without signs of CHF. No clear etiology of cough. Ankle sprain. Continue acetaminophen as needed. Continue icing as needed. * Trial of diclofenac gel starting 10/13/2018. Consider trial of lidocaine patch if diclofenac gel is not effective. Nocturia with no signs or symptoms of UTI. Not having urinary frequency during the day today, 10/13/2018. Check bladder scan for postvoid residual. Hypertension. Inadequate blood pressure control with spinal act on and furosemide. * Add amlodipine 2.5 mg q.day starting 10/13/2018. . She reports she was on it previously and had some low blood pressures. Consider reducing furosemide. Coronary artery disease, status post stenting. Aspirin was added to her medication regimen when she underwent angioplasty on 10/05/2018. This is to continue for approximately a month. She will continue rivaroxaban intermediate. Epistaxis. Likely consequence of dual anti-platelet plus anticoagulant therapy. Initiating nasal saline 10/12/2018. Continue to monitor. Atrial fibrillation. Continue rivaroxaban. She does not appear to be in need of rate control. Question of congestive heart failure. She is chronically on spironolactone and furosemide. On clinical exam, she does not appear to be fluid overloaded. Obstructive sleep apnea. Using CPAP from home. Hypothyroidism. Continue levothyroxine supplementation. Glaucoma. Continue multiple eyedrops. There will be further assessment per PT and OT regarding whether her vision impairs her function. Prophylaxis. There is no need for DVT prophylaxis as she is on dual- antiplatelet therapy, as well as rivaroxaban. She had an ultrasound of the left lower extremity, which ruled out DVT. DISPOSITION: Intends to return to independent living facility. Planning for home OT and PT. Followup. She is to see Neurology in approximately 6 weeks. She is to see access lead Dr. Armani Whittington scheduled for 10/19/2018. Her primary care provider is Dr. Leslie Bañuelos. 10/13/18 11:31 Subjective: Complaint of urinary frequency overnight, as often as every 1 hr. Was set up with external female catheter, which helped. She had some decaffeinated tea after dinner which is her usual habit; she only has caffeinated coffee in the morning. No dysuria, no fevers or chills. No cough or dyspnea. Objective: Vital Signs Temp Pulse Resp BP Pulse Ox 36.6 C 70 13 154/83 H 93 10/13/18 07:15 10/13/18 07:15 10/13/18 07:15 10/13/18 07:15 10/13/18 07:15 10/12/18 10/13/18 10/14/18 05:59 05:59 05:59 Intake Total 738 1490 Output Total 1900 2300 Balance -1162 -810 Physical Exam - Physical Exam General Appearance: WD/WN, alert, no apparent distress Respiratory: normal breath sounds, No crackles, No rhonchi, No wheezing Cardiac/Chest: regular rate, rhythm, No diastolic murmur, No systolic murmur Skin: normal color, warm/dry, other (Bruising over left ankle) Extremities: swelling (Left ankle), other (Very tender to palpation left ankle.) Neuro/Psych: alert, normal mood/affect, oriented x 3 ICD10 Worksheet Patient Problems: Problems Problem Status Onset Chronic atrial fibrillation Acute Coronary artery disease Acute Fall from ground level Acute Left ankle sprain Acute Left knee pain Acute Left leg weakness Acute
[2018-10-13] MEDS: BIOTENE DRY MOUTH ORAL RINSE 237 ML BTL MM PRN (13:20)
[2018-10-13] MEDS: ATORVASTATIN CALCIUM 40 MG TAB PO SCH (20:36)
[2018-10-13] MEDS: PSYLLIUM METAMUCIL 1 PKT PO SCH (20:37)
[2018-10-13] MEDS: RIVAROXABAN 15 MG TAB PO SCH (20:37)
[2018-10-13] MEDS: LATANOPROST 0.005% 2.5 ML OPHT DROPS EACHEYE SCH (20:44)
[2018-10-14] MEDS: LEVOTHYROXINE 100 MCG TAB PO SCH (05:32)
[2018-10-14] MEDS: DICLOFENAC SODIUM 1% 100 GM GEL TP SCH ×4 (07:56→19:29)
[2018-10-14] MEDS: ACETAMINOPHEN 325 MG TAB PO PRN (08:04)
[2018-10-14] MEDS: PRESERVISION AREDS2 FORMULA EYE VIT 1 EACH PO SCH ×2 (09:09→17:51)
[2018-10-14] MEDS: CALCIUM CARBONATE 500 MG TAB PO SCH ×2 (09:19→19:29)
[2018-10-14] MEDS: BRIMONIDINE 0.2% 5 ML OPHT.BTL EACHEYE SCH ×2 (09:19→19:29)
[2018-10-14] MEDS: ASPIRIN 81 MG CHEWABLE TAB PO SCH (09:19)
[2018-10-14] MEDS: DORZOLAMIDE/TIMOLOL 10 ML OPHT.BTL EACHEYE SCH ×2 (09:20→19:30)
[2018-10-14] MEDS: CYANO/VITAMIN B12 1000 MCG TAB PO SCH (09:21)
[2018-10-14] MEDS: CLOPIDOGREL BISULFATE 75 MG TAB PO SCH (09:21)
[2018-10-14] MEDS: CHOLECALCIFEROL VIT D3 1,000 UNITS TAB PO SCH ×2 (09:21→19:29)
[2018-10-14] MEDS: FUROSEMIDE 40 MG TAB PO SCH (09:21)
[2018-10-14] MEDS: [UNRECOGNIZED DRUG - OTHER] PO SCH (09:22)
[2018-10-14] MEDS: PANTOPRAZOLE SODIUM 40 MG TAB PO SCH (09:22)
[2018-10-14] MEDS: SPIRONOLACTONE 25 MG TAB PO SCH (09:23)
--- NOTE | 2018-10-14 11:47 | SOAPPROG ---
SOAP Progress Note Assessment/Plan: Assessment: Cerebrovascular accident with left weakness and balance impairment. * Ambulated 65 ft with 4 wheeled walker, limited by fatigue and pain, abnormal gait with reduced to flexion and flatfoot id, needing assistance for balance. * Continue PT and OT to optimize mobility and ADLs toward the modified independent level. Cough. Imaging ruled out sinusitis and there was no sign of postnasal drainage on exam. She is on a proton pump inhibitor, which makes gastroesophageal reflux disorder less likely as an etiology. * Chest x-ray 10/11/2018 with question of patchy infiltrate in the right lower lobe, possible tiny effusion, hyperexpansion consistent with COPD, cardiomegaly without signs of CHF. No clear etiology of cough. Ankle sprain. Continue acetaminophen as needed. Continue icing as needed. * Trial of diclofenac gel starting 10/13/2018, with some relief. Ankle swelling is markedly improved. Nocturia with no signs or symptoms of UTI. Not having urinary frequency during the day today, 10/13/2018. * Postvoid residual 158 cc yesterday, well below threshold for catheterization; unclear if urinary retention is contributing to urinary frequency. * Urinalysis 10/14/2018 not consistent with UTI. Consider reducing diuretics. Left SAH with Cardiology. Her primary food mixer assembler Dr. Madison will be available tomorrow, 10/15/2018. * She has close to a 2 kg weight loss since admission to inpatient rehabilitation. Conceivably her nocturia is due to resolution of left lower extremity edema and associated diuresis overnight wile supine. Hypertension. Inadequate blood pressure control with spinal act on and furosemide. * Add amlodipine 2.5 mg q.day starting 10/13/2018. . She reports she was on it previously and had some low blood pressures. Consider reducing furosemide. Coronary artery disease, status post stenting. Aspirin was added to her medication regimen when she underwent angioplasty on 10/05/2018. This is to continue for approximately a month. She will continue rivaroxaban custodial. Epistaxis. Likely consequence of dual anti-platelet plus anticoagulant therapy. Initiating nasal saline 10/12/2018. Continue to monitor. Atrial fibrillation. Continue rivaroxaban. She does not appear to be in need of rate control. Question of congestive heart failure, with aortic and mitral valve regurgitation. She is chronically on spironolactone and furosemide. On clinical exam, she does not appear to be fluid overloaded. Obstructive sleep apnea. Using CPAP from home. Hypothyroidism. Continue levothyroxine supplementation. Glaucoma. Continue multiple eyedrops. There will be further assessment per PT and OT regarding whether her vision impairs her function. Prophylaxis. There is no need for DVT prophylaxis as she is on dual- antiplatelet therapy, as well as rivaroxaban. She had an ultrasound of the left lower extremity, which ruled out DVT. DISPOSITION: Intends to return to independent living facility. Planning for home OT and PT. Followup. She is to see Neurology in approximately 6 weeks. She is to see food mixer assembler Dr. Armani Whittington scheduled for 10/19/2018. Her primary care provider is Dr. Leslie Bañuelos. 10/14/18 15:53 Subjective: Urinary frequency overnight every 2-2 and 0.5 hr, interfered with sleep. No dysuria, no pelvic pain, no fevers or chills. Diclofenac gel has helped left ankle pain, but is still very tender. Otherwise without complaints. Objective: Vital Signs Temp Pulse Resp BP Pulse Ox 36.8 C 96 16 105/49 L 97 10/14/18 07:49 10/14/18 09:16 10/14/18 07:49 10/14/18 09:16 10/14/18 09:16 10/13/18 10/14/18 10/15/18 05:59 05:59 05:59 Intake Total 1490 1900 350 Output Total 2300 1075 550 Balance -810 825 -200 Physical Exam - Physical Exam General Appearance: WD/WN, alert, no apparent distress Respiratory: normal breath sounds, No crackles, No rhonchi, No wheezing Cardiac/Chest: systolic murmur (LSB), irregularly irregular, No edema, No JVD, No diastolic murmur Skin: normal color, warm/dry Extremities: pedal edema (1+ left ankle), other (Tender to light palpation left ankle) Neuro/Psych: alert, normal mood/affect, oriented x 3 ICD10 Worksheet Patient Problems: Problems Problem Status Onset Chronic atrial fibrillation Acute Coronary artery disease Acute Fall from ground level Acute Left ankle sprain Acute Left knee pain Acute Left leg weakness Acute
[2018-10-14] MEDS: RIVAROXABAN 15 MG TAB PO SCH (19:29)
[2018-10-14] MEDS: PSYLLIUM METAMUCIL 1 PKT PO SCH (19:29)
[2018-10-14] MEDS: ATORVASTATIN CALCIUM 40 MG TAB PO SCH (19:29)
[2018-10-14] MEDS: LATANOPROST 0.005% 2.5 ML OPHT DROPS EACHEYE SCH (19:30)
[2018-10-15] MEDS: LEVOTHYROXINE 100 MCG TAB PO SCH (05:34)
[2018-10-15] MEDS: DICLOFENAC SODIUM 1% 100 GM GEL TP SCH ×4 (07:32→19:51)
[2018-10-15] MEDS: BRIMONIDINE 0.2% 5 ML OPHT.BTL EACHEYE SCH ×2 (08:22→19:51)
[2018-10-15] MEDS: DORZOLAMIDE/TIMOLOL 10 ML OPHT.BTL EACHEYE SCH ×2 (08:23→19:51)
[2018-10-15] MEDS: ASPIRIN 81 MG CHEWABLE TAB PO SCH (08:27)
[2018-10-15] MEDS: PRESERVISION AREDS2 FORMULA EYE VIT 1 EACH PO SCH ×2 (08:27→18:09)
[2018-10-15] MEDS: CALCIUM CARBONATE 500 MG TAB PO SCH ×2 (08:28→19:48)
[2018-10-15] MEDS: CYANO/VITAMIN B12 1000 MCG TAB PO SCH (08:29)
[2018-10-15] MEDS: CLOPIDOGREL BISULFATE 75 MG TAB PO SCH (08:29)
[2018-10-15] MEDS: CHOLECALCIFEROL VIT D3 1,000 UNITS TAB PO SCH ×2 (08:29→19:49)
[2018-10-15] MEDS: FUROSEMIDE 40 MG TAB PO SCH (08:30)
[2018-10-15] MEDS: SPIRONOLACTONE 25 MG TAB PO SCH (08:30)
[2018-10-15] MEDS: [UNRECOGNIZED DRUG - OTHER] PO SCH (08:30)
[2018-10-15] MEDS: PANTOPRAZOLE SODIUM 40 MG TAB PO SCH (08:30)
--- NOTE | 2018-10-15 11:46 | SOAPPROG ---
SOAP Progress Note Assessment/Plan: Assessment: Cerebrovascular accident with left weakness and balance impairment. * Initial FIM 96 on 10/15/2018. Supervision for bed mobility and tansfers with 4WW. Ambulated 145 ft with 4 wheeled walker,SBA/S. G&H, UB & LB dressing, bath transfer, toileting and toilet transfer with SBA, CGA bathing for balance. * Continue PT and OT to optimize mobility and ADLs toward the modified independent level. Cough. Imaging ruled out sinusitis and there was no sign of postnasal drainage on exam. She is on a proton pump inhibitor, which makes gastroesophageal reflux disorder less likely as an etiology. * Chest x-ray 10/11/2018 with question of patchy infiltrate in the right lower lobe, possible tiny effusion, hyperexpansion consistent with COPD, cardiomegaly without signs of CHF. No clear etiology of cough. Ankle sprain. Continue acetaminophen as needed. Continue icing as needed. * Trial of diclofenac gel starting 10/13/2018, with some relief. Ankle swelling is markedly improved. Nocturia with no signs or symptoms of UTI. Not having urinary frequency during the day today, 10/13/2018. * Postvoid residual 158 cc yesterday, well below threshold for catheterization; unclear if urinary retention is contributing to urinary frequency. * Urinalysis 10/14/2018 not consistent with UTI. Consider reducing diuretics. Left SAH with Cardiology. Her primary olive grader Dr. Madison will be available tomorrow, 10/15/2018. * She has close to a 2 kg weight loss since admission to inpatient rehabilitation. Conceivably her nocturia is due to resolution of left lower extremity edema and associated diuresis overnight wile supine. * Discussed with olive grader Dr. Cabrera. OK with decreasing furosemide from 40 mg to 20 mg QD. Continue spironolactone. Continue to monitor. Hypertension. Inadequate blood pressure control with spinal act on and furosemide. * Added amlodipine 2.5 mg q.day starting 10/13/2018. . She reports she was on it previously and had some low blood pressures. Reduce furosemide 10/16/2018. Coronary artery disease, status post stenting. Aspirin was added to her medication regimen when she underwent angioplasty on 10/05/2018. This is to continue for approximately a month. 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 Epistaxis. Likely consequence of dual anti-platelet plus anticoagulant therapy. Initiating nasal saline 10/12/2018. Continue to monitor. Atrial fibrillation. Continue rivaroxaban. She does not appear to be in need of rate control. Question of congestive heart failure, with aortic and mitral valve regurgitation. She is chronically on spironolactone and furosemide. On clinical exam, she does not appear to be fluid overloaded. Obstructive sleep apnea. Using CPAP from home. Hypothyroidism. Continue levothyroxine supplementation. Glaucoma. Continue multiple eyedrops. There will be further assessment per PT and OT regarding whether her vision impairs her function. Prophylaxis. There is no need for DVT prophylaxis as she is on dual- antiplatelet therapy, as well as rivaroxaban. She had an ultrasound of the left lower extremity, which ruled out DVT. DISPOSITION: Attended staffing, 15 min, 10/15/2018. D/W case mgmt, tc, PT , OT. Wants to return to independent living facility, but more appropriate at present for LONGTERM with assistance for medication management. Re-staff 10/20/2018. Tentative discharge 10/22/2018.. Planning for home OT and PT. Followup. She is to see Neurology in approximately 6 weeks. She is to see olive grader Dr. Armani Whittington scheduled for 10/19/2018. Her primary care provider is Dr. Leslie Bañuelos. 10/15/18 11:48 Subjective: Urinary frequency again overnight X 5. Slept well for about 4 hours. Otherwise without complaint. Walking further. L ankle hurts initially in them orning but feels better once she's up and walking. Objective: Vital Signs Temp Pulse Resp BP Pulse Ox 36.3 C 88 18 130/65 H 90 L 10/15/18 07:30 10/15/18 07:30 10/15/18 07:30 10/15/18 07:30 10/15/18 07:30 10/14/18 10/15/18 10/16/18 05:59 05:59 05:59 Intake Total 1900 1465 125 Output Total 1076 5847 650 Balance 695 -0820 -579 - Time Spent With Patient Time Spent With Patient: Greater than 35 min floor time today, including more than 50% of time in coordination of care during staffing, and counseling patient. Physical Exam - Physical Exam General Appearance: WD/WN, alert, no apparent distress Respiratory: normal breath sounds, No crackles, No rhonchi, No wheezing Cardiac/Chest: regular rate, rhythm, No edema Skin: normal color, warm/dry Neuro/Psych: alert, normal mood/affect, oriented x 3, abnormal gait (Slow, slightly wide-based, foot-drop R > L) ICD10 Worksheet Patient Problems: Problems Problem Status Onset Chronic atrial fibrillation Acute Coronary artery disease Acute Fall from ground level Acute Left ankle sprain Acute Left knee pain Acute Left leg weakness Acute
[2018-10-15] MEDS: SENNOSIDES 1 TAB PO SCH (19:48)
[2018-10-15] MEDS: ATORVASTATIN CALCIUM 40 MG TAB PO SCH (19:49)
[2018-10-15] MEDS: RIVAROXABAN 15 MG TAB PO SCH (19:49)
[2018-10-15] MEDS: DOCUSATE SODIUM 100 MG CAP PO SCH (19:49)
[2018-10-15] MEDS: PSYLLIUM METAMUCIL 1 PKT PO SCH (19:52)
[2018-10-15] MEDS: LATANOPROST 0.005% 2.5 ML OPHT DROPS EACHEYE SCH (19:52)
[2018-10-15] MEDS ORDERED: ZOLPIDEM TARTRATE 5 MG TAB PO ONE (21:30)
[2018-10-16] MEDS: LEVOTHYROXINE 100 MCG TAB PO SCH (06:24)
[2018-10-16] MEDS: FUROSEMIDE 20 MG TAB PO SCH (07:57)
[2018-10-16] MEDS: CLOPIDOGREL BISULFATE 75 MG TAB PO SCH (07:57)
[2018-10-16] MEDS: CHOLECALCIFEROL VIT D3 1,000 UNITS TAB PO SCH ×2 (07:57→20:18)
[2018-10-16] MEDS: PANTOPRAZOLE SODIUM 40 MG TAB PO SCH (07:57)
[2018-10-16] MEDS: CYANO/VITAMIN B12 1000 MCG TAB PO SCH (07:58)
[2018-10-16] MEDS: ASPIRIN 81 MG CHEWABLE TAB PO SCH (07:58)
[2018-10-16] MEDS: SPIRONOLACTONE 25 MG TAB PO SCH (07:58)
[2018-10-16] MEDS: PRESERVISION AREDS2 FORMULA EYE VIT 1 EACH PO SCH ×2 (07:58→18:46)
[2018-10-16] MEDS: CALCIUM CARBONATE 500 MG TAB PO SCH ×2 (07:58→20:18)
[2018-10-16] MEDS: DORZOLAMIDE/TIMOLOL 10 ML OPHT.BTL EACHEYE SCH ×2 (07:59→20:25)
[2018-10-16] MEDS: BRIMONIDINE 0.2% 5 ML OPHT.BTL EACHEYE SCH ×2 (07:59→20:24)
[2018-10-16] MEDS: DICLOFENAC SODIUM 1% 100 GM GEL TP SCH ×4 (08:10→20:25)
[2018-10-16] MEDS: [UNRECOGNIZED DRUG - OTHER] PO SCH (08:11)
--- NOTE | 2018-10-16 16:15 | HOSPPROG ---
Hospitalist Progress Note Assessment/Plan: Cerebrovascular accident with left weakness and balance impairment. * Initial FIM 96 on 10/15/2018. Supervision for bed mobility and tansfers with 4WW. Ambulated 145 ft with 4 wheeled walker,SBA/S. G&H, UB & LB dressing, bath transfer, toileting and toilet transfer with SBA, CGA bathing for balance. * Continue PT and OT to optimize mobility and ADLs toward the modified independent level. Cough. Imaging ruled out sinusitis and there was no sign of postnasal drainage on exam. She is on a proton pump inhibitor, which makes gastroesophageal reflux disorder less likely as an etiology. * Chest x-ray 10/11/2018 with question of patchy infiltrate in the right lower lobe, possible tiny effusion, hyperexpansion consistent with COPD, cardiomegaly without signs of CHF. No clear etiology of cough. Ankle sprain. Continue acetaminophen as needed. Continue icing as needed. * Trial of diclofenac gel starting 10/13/2018, with some relief. Ankle swelling is markedly improved. * Still pretty painful with difficulty bearing weight - will get MRI Nocturia with no signs or symptoms of UTI. Not having urinary frequency during the day today, 10/13/2018. * Postvoid residual 158 cc yesterday, well below threshold for catheterization; unclear if urinary retention is contributing to urinary frequency. * Urinalysis 10/14/2018 not consistent with UTI. Consider reducing diuretics. Left SAH with Cardiology. Her primary link trainer maintenance worker Dr. Madison will be available tomorrow, 10/15/2018. * She has close to a 2 kg weight loss since admission to inpatient rehabilitation. Conceivably her nocturia is due to resolution of left lower extremity edema and associated diuresis overnight wile supine. * Discussed with link trainer maintenance worker Dr. Cabrera. OK with decreasing furosemide from 40 mg to 20 mg QD. Continue spironolactone. Continue to monitor. * less nocturia with sleeping pill Hypertension. Inadequate blood pressure control with spinal act on and furosemide. * Added amlodipine 2.5 mg q.day starting 10/13/2018. . She reports she was on it previously and had some low blood pressures. Reduce furosemide 10/16/2018. * good bp Coronary artery disease, status post stenting. Aspirin was added to her medication regimen when she underwent angioplasty on 10/05/2018. This is to continue for approximately a month. She will continue rivaroxaban chcf. Epistaxis. Likely consequence of dual anti-platelet plus anticoagulant therapy. Initiating nasal saline 10/12/2018. Continue to monitor. Atrial fibrillation. Continue rivaroxaban. She does not appear to be in need of rate control. Question of congestive heart failure, with aortic and mitral valve regurgitation. She is chronically on spironolactone and furosemide. On clinical exam, she does not appear to be fluid overloaded. Obstructive sleep apnea. Using CPAP from home. Hypothyroidism. Continue levothyroxine supplementation. Glaucoma. Continue multiple eyedrops. There will be further assessment per PT and OT regarding whether her vision impairs her function. Prophylaxis. There is no need for DVT prophylaxis as she is on dual- antiplatelet therapy, as well as rivaroxaban. She had an ultrasound of the left lower extremity, which ruled out DVT. Subjective: left ankle with cont pain with weught bearing. has been 8 days. swelling better but still quite painful Objective: Vital Signs Temp Pulse Resp BP Pulse Ox 36.6 C 82 18 133/75 H 97 10/16/18 06:36 10/16/18 07:54 10/16/18 06:36 10/16/18 07:57 10/16/18 06:36 10/15/18 10/16/18 10/17/18 05:59 05:59 05:59 Intake Total 1465 815 360 Output Total 2725 1450 Balance -1260 -635 360 - Physical Exam Constitutional: no apparent distress, appears nourished, not in pain Eyes: anicteric sclera Ears, Nose, Mouth, Throat: moist mucous membranes Cardiovascular: regular rate and rhythym Respiratory: no respiratory distress Skin: warm Musculoskeletal: other (left ankle - swelling, decreased ROM, a lot of bruising) Neurologic: AAOx3 ICD10 Worksheet Patient Problems: Problems Problem Status Onset Chronic atrial fibrillation Acute Coronary artery disease Acute Fall from ground level Acute Left ankle sprain Acute Left knee pain Acute Left leg weakness Acute
[2018-10-16] MEDS: DOCUSATE SODIUM 100 MG CAP PO SCH (20:18)
[2018-10-16] MEDS: RIVAROXABAN 15 MG TAB PO SCH (20:18)
[2018-10-16] MEDS: SENNOSIDES 1 TAB PO SCH (20:18)
[2018-10-16] MEDS: ATORVASTATIN CALCIUM 40 MG TAB PO SCH (20:18)
[2018-10-16] MEDS: LATANOPROST 0.005% 2.5 ML OPHT DROPS EACHEYE SCH (20:25)
[2018-10-16] MEDS: PSYLLIUM METAMUCIL 1 PKT PO SCH (20:25)
[2018-10-16] MEDS: ZOLPIDEM TARTRATE 5 MG TAB PO PRN (21:02)
[2018-10-16] MEDS: ACETAMINOPHEN 325 MG TAB PO PRN (21:02)
[2018-10-17] MEDS: BIOTENE DRY MOUTH ORAL RINSE 237 ML BTL MM PRN ×2 (05:37→20:31)
[2018-10-17] MEDS: LEVOTHYROXINE 100 MCG TAB PO SCH (05:37)
[2018-10-17] MEDS: DICLOFENAC SODIUM 1% 100 GM GEL TP SCH (05:38)
--- NOTE | 2018-10-17 07:29 | GCON ---
[f rep st] CONSULTATION ORTHOPEDIC CONSULTATION DATE OF CONSULTATION: 10/17/2018 REASON FOR CONSULTATION: Left distal fibula fracture. HPI: The patient is a very pleasant 88-year-old female who was admitted on October 07, following a left -sided CVA with resulting weakness. Two days prior to her admission she had a cardiac catheterizatio n. She was complaining of left knee and ankle pain. Initial imaging was negative. MRI obtained yes terday afternoon did show a distal fibular fracture. She has been struggling with pain and swelling in the left ankle. PRIOR MEDICAL HISTORY: Atrial fibrillation, coronary artery disease, congestive heart failure, hyper tension, dyslipidemia, sleep apnea. PRIOR SURGICAL HISTORY: Knee replacement on the left, bilateral shoulder replacements, coronary owen ry bypass, coronary artery stenting, fem-pop bypass on the left. MEDICATIONS: Please see attached list. PHYSICAL EXAM: GENERAL: Pleasant 88-year-old female, alert and oriented x3. VITAL SIGNS: Blood pr essure is 125/67, heart rate is 86, respiratory rate 18, saturating 96% on room air, temperature is 3 6.6. EXTREMITIES: Lower extremity exam, well-healed left knee incision. Trophic skin changes throu ghout the lower extremity. Minimal swelling at the ankle. She is tender over the distal fibula. Sh e has about 5 degrees of dorsiflexion, 40 of plantar flexion. Her calf is soft. Achilles tendon is intact. There is no midfoot or forefoot tenderness. No tenderness over the base of the fifth metata rsal. 1+ dorsalis pedis and posterior tibial pulses. IMAGING DATA: Plain imaging: X-rays of the ankle, show diffuse osteopenia. An MRI obtained yesterd ay shows some mild chondral thinning as well as a nondisplaced distal fibular fracture. There is ifeanyi e mild edema in the medial malleolus, but I do not see a definitive fracture line. ASSESSMENT: Nondisplaced distal fibular fracture. PLAN: She can be weightbearing as tolerated in a boot, plantar flexion, dorsiflexion exercises are o ford. I want to hold off on inversion and eversion or alphabet exercises for the time being. We will plan on seeing her back in the office in 2 weeks with repeat x-rays of the ankle. I anticipate 4 we eks in the boot. She only needs to be in this when she is up walking, she does not need this in bed. We then probably will transition her into a lace-up brace. She is going to tentatively go to [facility] or [place] rehab early next week, and as I said I will see her back in my office in 2 weeks wit h an x-ray of the ankle. /[id number]/MODL
[2018-10-17] MEDS: DORZOLAMIDE/TIMOLOL 10 ML OPHT.BTL EACHEYE SCH ×2 (07:53→19:35)
[2018-10-17] MEDS: FUROSEMIDE 20 MG TAB PO SCH (07:54)
[2018-10-17] MEDS: PRESERVISION AREDS2 FORMULA EYE VIT 1 EACH PO SCH ×2 (07:54→17:36)
[2018-10-17] MEDS: CHOLECALCIFEROL VIT D3 1,000 UNITS TAB PO SCH ×2 (07:54→20:34)
[2018-10-17] MEDS: CLOPIDOGREL BISULFATE 75 MG TAB PO SCH (07:55)
[2018-10-17] MEDS: PANTOPRAZOLE SODIUM 40 MG TAB PO SCH (07:55)
[2018-10-17] MEDS: ASPIRIN 81 MG CHEWABLE TAB PO SCH (07:55)
[2018-10-17] MEDS: CYANO/VITAMIN B12 1000 MCG TAB PO SCH (07:55)
[2018-10-17] MEDS: CALCIUM CARBONATE 500 MG TAB PO SCH ×2 (07:55→20:34)
[2018-10-17] MEDS: BRIMONIDINE 0.2% 5 ML OPHT.BTL EACHEYE SCH ×2 (07:55→19:35)
[2018-10-17] MEDS: SPIRONOLACTONE 25 MG TAB PO SCH (07:58)
[2018-10-17] MEDS: [UNRECOGNIZED DRUG - OTHER] PO SCH (08:01)
--- NOTE | 2018-10-17 08:38 | HOSPPROG ---
Hospitalist Progress Note Assessment/Plan: Cerebrovascular accident with left weakness and balance impairment. * Initial FIM 96 on 10/15/2018. Supervision for bed mobility and tansfers with 4WW. Ambulated 145 ft with 4 wheeled walker,SBA/S. G&H, UB & LB dressing, bath transfer, toileting and toilet transfer with SBA, CGA bathing for balance. * Continue PT and OT to optimize mobility and ADLs toward the modified independent level. Cough. Imaging ruled out sinusitis and there was no sign of postnasal drainage on exam. She is on a proton pump inhibitor, which makes gastroesophageal reflux disorder less likely as an etiology. * Chest x-ray 10/11/2018 with question of patchy infiltrate in the right lower lobe, possible tiny effusion, hyperexpansion consistent with COPD, cardiomegaly without signs of CHF. No clear etiology of cough. Distal tib/fib fracture * ortho opinion appreciated * boot with ambulation * follow up in 2 weeks * will dc diclofenac to help with bone healing Nocturia with no signs or symptoms of UTI. Not having urinary frequency during the day today, 10/13/2018. * Postvoid residual 158 cc yesterday, well below threshold for catheterization; unclear if urinary retention is contributing to urinary frequency. * Urinalysis 10/14/2018 not consistent with UTI. Consider reducing diuretics. Left SAH with Cardiology. Her primary clean room assembler Dr. Madison will be available tomorrow, 10/15/2018. * She has close to a 2 kg weight loss since admission to inpatient rehabilitation. Conceivably her nocturia is due to resolution of left lower extremity edema and associated diuresis overnight wile supine. * Discussed with clean room assembler Dr. Cabrera. OK with decreasing furosemide from 40 mg to 20 mg QD. Continue spironolactone. Continue to monitor. * less nocturia with sleeping pill Hypertension. Inadequate blood pressure control with spinal act on and furosemide. * Added amlodipine 2.5 mg q.day starting 10/13/2018. . She reports she was on it previously and had some low blood pressures. Reduce furosemide 10/16/2018. * good bp Coronary artery disease, status post stenting. Aspirin was added to her medication regimen when she underwent angioplasty on 10/05/2018. This is to continue for approximately a month. 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 Epistaxis. Likely consequence of dual anti-platelet plus anticoagulant therapy. Initiating nasal saline 10/12/2018. Continue to monitor. Atrial fibrillation. Continue rivaroxaban. She does not appear to be in need of rate control. Question of congestive heart failure, with aortic and mitral valve regurgitation. She is chronically on spironolactone and furosemide. On clinical exam, she does not appear to be fluid overloaded. Obstructive sleep apnea. Using CPAP from home. Hypothyroidism. Continue levothyroxine supplementation. Glaucoma. Continue multiple eyedrops. There will be further assessment per PT and OT regarding whether her vision impairs her function. Prophylaxis. There is no need for DVT prophylaxis as she is on dual- antiplatelet therapy, as well as rivaroxaban. She had an ultrasound of the left lower extremity, which ruled out DVT. Subjective: distal tib/fib fracture found on MRI. slept well last night Objective: Vital Signs Temp Pulse Resp BP Pulse Ox 36.6 C 72 12 148/76 H 96 10/17/18 07:33 10/17/18 07:33 10/17/18 07:33 10/17/18 07:57 10/17/18 07:33 10/16/18 10/17/18 10/18/18 05:59 05:59 05:59 Intake Total 815 1300 Output Total 1450 400 Balance -635 900 ICD10 Worksheet Patient Problems: Problems Problem Status Onset Chronic atrial fibrillation Acute Coronary artery disease Acute Fall from ground level Acute Left ankle sprain Acute Left knee pain Acute Left leg weakness Acute
[2018-10-17] MEDS: LATANOPROST 0.005% 2.5 ML OPHT DROPS EACHEYE SCH (19:34)
[2018-10-17] MEDS: ZOLPIDEM TARTRATE 5 MG TAB PO PRN (20:32)
[2018-10-17] MEDS: SENNOSIDES 1 TAB PO SCH (20:33)
[2018-10-17] MEDS: DOCUSATE SODIUM 100 MG CAP PO SCH (20:33)
[2018-10-17] MEDS: ATORVASTATIN CALCIUM 40 MG TAB PO SCH (20:34)
[2018-10-17] MEDS: RIVAROXABAN 15 MG TAB PO SCH (20:35)
[2018-10-17] MEDS: ACETAMINOPHEN 325 MG TAB PO PRN (20:35)
[2018-10-18] MEDS: PSYLLIUM METAMUCIL 1 PKT PO SCH ×2 (01:06→20:57)
[2018-10-18] MEDS: LEVOTHYROXINE 100 MCG TAB PO SCH (06:32)
[2018-10-18] MEDS: ASPIRIN 81 MG CHEWABLE TAB PO SCH (08:10)
[2018-10-18] MEDS: CHOLECALCIFEROL VIT D3 1,000 UNITS TAB PO SCH ×2 (08:10→20:52)
[2018-10-18] MEDS: CLOPIDOGREL BISULFATE 75 MG TAB PO SCH (08:10)
[2018-10-18] MEDS: CYANO/VITAMIN B12 1000 MCG TAB PO SCH (08:10)
[2018-10-18] MEDS: PRESERVISION AREDS2 FORMULA EYE VIT 1 EACH PO SCH ×2 (08:10→17:40)
[2018-10-18] MEDS: CALCIUM CARBONATE 500 MG TAB PO SCH ×2 (08:10→20:52)
[2018-10-18] MEDS: DORZOLAMIDE/TIMOLOL 10 ML OPHT.BTL EACHEYE SCH ×2 (08:11→20:40)
[2018-10-18] MEDS: BRIMONIDINE 0.2% 5 ML OPHT.BTL EACHEYE SCH ×2 (08:11→20:40)
[2018-10-18] MEDS: PANTOPRAZOLE SODIUM 40 MG TAB PO SCH (08:13)
[2018-10-18] MEDS: SPIRONOLACTONE 25 MG TAB PO SCH (08:13)
[2018-10-18] MEDS: FUROSEMIDE 20 MG TAB PO SCH (08:13)
[2018-10-18] MEDS: [UNRECOGNIZED DRUG - OTHER] PO SCH (08:16)
--- NOTE | 2018-10-18 13:40 | SOAPPROG ---
SOAP Progress Note Assessment/Plan: Assessment: Cerebrovascular accident with left weakness and balance impairment. * Initial FIM 96 on 10/15/2018. Supervision for bed mobility and tansfers with 4WW. Ambulated 145 ft with 4 wheeled walker,SBA/S. G&H, UB & LB dressing, bath transfer, toileting and toilet transfer with SBA, CGA bathing for balance. * Continue PT and OT to optimize mobility and ADLs toward the modified independent level. Cough. Imaging ruled out sinusitis and there was no sign of postnasal drainage on exam. She is on a proton pump inhibitor, which makes gastroesophageal reflux disorder less likely as an etiology. * Chest x-ray 10/11/2018 with question of patchy infiltrate in the right lower lobe, possible tiny effusion, hyperexpansion consistent with COPD, cardiomegaly without signs of CHF. No clear etiology of cough. Distal tib/fib fracture * ortho opinion appreciated * boot with ambulation * follow up in 2 weeks * D/C'd diclofenac to help with bone healing Nocturia with no signs or symptoms of UTI. Not having urinary frequency during the day today, 10/13/2018. * Postvoid residual 158 cc yesterday, well below threshold for catheterization; unclear if urinary retention is contributing to urinary frequency. * Urinalysis 10/14/2018 not consistent with UTI. Consider reducing diuretics. Left SAH with Cardiology. Her primary bump grader operator Dr. Madison will be available tomorrow, 10/15/2018. * She has close to a 2 kg weight loss since admission to inpatient rehabilitation. Conceivably her nocturia is due to resolution of left lower extremity edema and associated diuresis overnight wile supine. * Discussed with bump grader operator Dr. Cabrera. OK with decreasing furosemide from 40 mg to 20 mg QD. Continue spironolactone. Continue to monitor. Hypertension. Inadequate blood pressure control with spinal act on and furosemide. * Added amlodipine 2.5 mg q.day starting 10/13/2018. . She reports she was on it previously and had some low blood pressures. Reduce furosemide 10/16/2018. Coronary artery disease, status post stenting. Aspirin was added to her medication regimen when she underwent angioplasty on 10/05/2018. This is to continue for approximately a month. She will continue rivaroxaban group home. Epistaxis. Likely consequence of dual anti-platelet plus anticoagulant therapy. Initiating nasal saline 10/12/2018. Continue to monitor. Atrial fibrillation. Continue rivaroxaban. She does not appear to be in need of rate control. Question of congestive heart failure, with aortic and mitral valve regurgitation. She is chronically on spironolactone and furosemide. On clinical exam, she does not appear to be fluid overloaded. Obstructive sleep apnea. Using CPAP from home. Hypothyroidism. Continue levothyroxine supplementation. Glaucoma. Continue multiple eyedrops. There will be further assessment per PT and OT regarding whether her vision impairs her function. Prophylaxis. There is no need for DVT prophylaxis as she is on dual- antiplatelet therapy, as well as rivaroxaban. She had an ultrasound of the left lower extremity, which ruled out DVT. DISPOSITION: Attended staffing, 15 min, 10/15/2018. D/W case mgmt, tc, PT , OT. Wants to return to independent living facility, but more appropriate at present for RETIREMENT with assistance for medication management. Working with Case Management, 10/18/2018. Likely short-term discharge to SNF pending transfer to assisted living. Followup. She is to see Neurology in approximately 6 weeks. She is to see bump grader operator Dr. Armani Whittington scheduled for 10/19/2018. Her primary care provider is Dr. Leslie Bañuelos. Follow up with Orthopedics, Dr. Crisostomo, approximately 11/01/2018. 10/18/18 13:37 Subjective: No complaints. Had 2.5 mg of zolpidem last night and slept well. Left distal fibular nondisplaced fracture diagnosed on MRI 2 days ago and she is in a walking boot per Orthopedics. Objective: Vital Signs Temp Pulse Resp BP Pulse Ox 36.8 C 80 18 128/75 H 99 10/18/18 07:42 10/18/18 07:42 10/18/18 07:42 10/18/18 08:10 10/18/18 07:42 10/17/18 10/18/18 10/19/18 05:59 05:59 05:59 Intake Total 1300 1500 640 Output Total 400 1450 Balance 900 50 640 Physical Exam - Physical Exam General Appearance: WD/WN, alert, no apparent distress Respiratory: No respiratory distress, No accessory muscle use Skin: normal color, warm/dry Neuro/Psych: alert, normal mood/affect, oriented x 3, abnormal gait ICD10 Worksheet Patient Problems: Problems Problem Status Onset Chronic atrial fibrillation Acute Coronary artery disease Acute Fall from ground level Acute Left ankle sprain Acute Left knee pain Acute Left leg weakness Acute
[2018-10-18] MEDS: LATANOPROST 0.005% 2.5 ML OPHT DROPS EACHEYE SCH (20:40)
[2018-10-18] MEDS: ZOLPIDEM TARTRATE 5 MG TAB PO PRN (20:52)
[2018-10-18] MEDS: RIVAROXABAN 15 MG TAB PO SCH (20:52)
[2018-10-18] MEDS: ATORVASTATIN CALCIUM 40 MG TAB PO SCH (20:52)
[2018-10-18] MEDS: DOCUSATE SODIUM 100 MG CAP PO SCH (20:57)
[2018-10-18] MEDS: SENNOSIDES 1 TAB PO SCH (20:58)
[2018-10-18] MEDS: BIOTENE DRY MOUTH ORAL RINSE 237 ML BTL MM PRN (23:35)
[2018-10-19] MEDS: BIOTENE DRY MOUTH ORAL RINSE 237 ML BTL MM PRN (02:11)
[2018-10-19] MEDS: LEVOTHYROXINE 100 MCG TAB PO SCH (05:18)
[2018-10-19] MEDS ORDERED: DICLOFENAC SODIUM 1% 100 GM GEL TP SCH (06:00)
[2018-10-19] MEDS: PRESERVISION AREDS2 FORMULA EYE VIT 1 EACH PO SCH (07:22)
[2018-10-19] MEDS: BRIMONIDINE 0.2% 5 ML OPHT.BTL EACHEYE SCH (07:22)
[2018-10-19] MEDS: DORZOLAMIDE/TIMOLOL 10 ML OPHT.BTL EACHEYE SCH (07:22)
[2018-10-19] MEDS: CALCIUM CARBONATE 500 MG TAB PO SCH (08:41)
[2018-10-19] MEDS: CLOPIDOGREL BISULFATE 75 MG TAB PO SCH (08:41)
[2018-10-19] MEDS: CYANO/VITAMIN B12 1000 MCG TAB PO SCH (08:41)
[2018-10-19] MEDS: PANTOPRAZOLE SODIUM 40 MG TAB PO SCH (08:41)
[2018-10-19] MEDS: CHOLECALCIFEROL VIT D3 1,000 UNITS TAB PO SCH (08:42)
[2018-10-19] MEDS: ASPIRIN 81 MG CHEWABLE TAB PO SCH (08:42)
[2018-10-19] MEDS: FUROSEMIDE 20 MG TAB PO SCH (08:42)
[2018-10-19 08:47] VITALS: BP 79/48
[2018-10-19] MEDS: [UNRECOGNIZED DRUG - OTHER] PO SCH (08:49)
[2018-10-19] MEDS: SPIRONOLACTONE 25 MG TAB PO SCH (08:55)
--- NOTE | 2018-10-19 13:22 | GDS ---
[f rep st] DISCHARGE SUMMARY ADMITTING DIAGNOSIS: Cerebrovascular accident following coronary angioplasty. DISCHARGE DIAGNOSIS: Cerebrovascular accident following coronary angioplasty. OTHER DISCHARGE DIAGNOSES: 1. Left fibula fracture. 2. Hypertension. 3. Epistaxis. 4. Atrial fibrillation. CONSULTATIONS: She was seen by orthopedic surgeon, Dr. Crisostomo. PROCEDURES: There were none. COMPLICATIONS: She was diagnosed with a left distal tibia nondisplaced fracture. HISTORY/HOSPITAL COURSE: This patient was admitted to [facility] from [facility]. She had presented there on 10/07/2018, with left lower extremity tingling, weakness , and pain. She underwent cardiac catheterization procedure 2 days prior. Rivaroxaban had been held for the procedure. She takes rivaroxaban for atrial fibrillation. When she had the onset of left-sided weakness, she fell, and had left ankle and knee pain. Brain MRI showed 2 lacunar infarcts in the right caudate head in the right parietal lobe. She had 55% stenosis of the proximal right internal carotid artery and 50% stenosis of the proximal left internal carotid artery. Echocardiogram showed moderate mitral regurgitation and aortic regurgitation, mildly dilated left atrium, and an ejection fraction 55% with no intra-atrial or cardiac thrombus. She was medically stabilized and ready for inpatient rehabilitation. She did well in rehabilitation. She achieved independence with bed mobility and modified independence with a 4-wheeled walker for transfers. She walked 100 feet or greater with a 4-wheeled walker and modified independence. She needed intermittent cues for right heel strike. She required rest breaks. She performed grooming and hygiene standing at the sink with modified independence. Dressing upper body required standby assist and lower body required minimal assist. Toileting was done with modified independence using an assistive device. Toilet transfers were done with modified independence. She had pain and swelling in her left lower extremity and had been diagnosed with an ankle sprain, having had negative x-ray studies when she first presented to the emergency department. Swelling improved, but she continued to have pain out of proportion with light palpation or with weightbearing. MRI of the ankle was obtained, which showed a distal nondisplaced fibular fracture off the left ankle. She was seen in consultation by orthopedic surgeon Dr. Crisostomo , and was placed in a walking boot with no weightbearing restriction. Regarding hypertension, she was noted to have elevated blood pressures with spironolactone and furosemide. Amlodipine was added at 2.5 mg per day on 2018, and furosemide was reduced on 10/16/2018, from 40 mg to 20 mg daily. She reported that she had a history of low blood pressure when on amlodipine. She tolerated it well until the morning of discharge when her blood pressure was 79/ 48. She was not symptomatic. She was advised to discontinue amlodipine, and if her blood pressure becomes elevated again, should consider alternate agents. Regarding chronic conditions of atrial fibrillation, coronary artery disease, possible congestive heart failure, hypothyroidism, and glaucoma, she was continued on rivaroxaban, clopidogrel, and aspirin, as well as levothyroxine and eyedrops for glaucoma. . She had epistaxis, which was likely a consequence of a dual anti-platelet therapy plus anticoagulant. She was treated with nasal saline. Epistaxis was intermittent and not problematic. She has obstructive sleep apnea and was compliant with CPAP. DISCHARGE PLAN: DISPOSITION: [facility] period of several weeks until she can move into the [facility] in [place]. CONDITION: Good. ACTIVITY: Ad cong. DIET: Regular texture and thin liquids. MEDICATIONS AT DISCHARGE: 1. Acetaminophen 650 mg q.8 hours p.r.n. 2. Amlodipine continues to be ordered for her at 2.5 mg daily, but she was advised to discontinue amlodipine. 3. Aspirin 81 mg daily through 11/03/2018 4. Atorvastatin 80 mg p.o. q.h.s. 5. Brimonidine 0.2% 1 drop each eye b.i.d. 6. Calcium citrate 200 mg p.o. b.i.d. 7. Calcium polycarbophil 625 mg p.o. q.h.s. 8. Cholecalciferol 1000 units p.o. b.i.d. 9. Clopidogrel 75 mg p.o. daily. 10. Cyanocobalamin 1000 mcg p.o. daily. 11. Docusate 100 mg p.o. q.h.s. 12. Dorzolamide/timolol 1 drop each eye b.i.d. 13. Furosemide 20 mg p.o. daily. 14. Latanoprost 0.005% 1 drop each eye q.h.s. 15. Levothyroxine 100 mcg p.o. daily. 16. Pantoprazole 40 mg p.o. daily. 17. Rivaroxaban 15 mg p.o. q.h.s. 18. Senna 2 tabs p.o. q.h.s. 19. Spironolactone 12.5 mg p.o. daily. 20. PreserVision multivitamin 1 p.o. b.i.d. 21. Zolpidem 2.5 mg p.o. q.h.s. p.r.n. ISSUES TO BE ADDRESSED AT FOLLOWUP: 1. Mobility and activities of daily living. She will continue PT and OT at the long term facility until her discharge to assisted living. 2. Hypertension. Advised close observation of her blood pressure. Advise holding amlodipine and consider an alternate agent should her blood pressure be over 140/90. She can follow up with primary care or Cardiology. 3. Coronary artery disease, status post stenting. She has follow up with swinging cut off saw operator, Dr. Madison on 10/19/2018. 4. Distal left tibial fracture. Continue walking boot. There are no weightbearing restrictions. She will follow up in approximately 2 weeks with orthopedic surgeon, Dr. Crisostomo. 5. Obstructive sleep apnea with CPAP. She has a followup scheduled with Dr. Perez at [facility] after discharge. 6. CVA. She will follow up with Neurology in approximately 6 weeks. Greater than 30 minutes were spent on this discharge, including medication reconciliation, coordination of care, and counseling patient. Patient was seen and examined on the day of discharge. Copy requested to: [facility] and [place], [place] /[id number]/MODL MTDD
== END 2018-10-19 11:53 | DRG 57 ==
LOC: F3E 14:16
PROVIDERS: ADMIT Internal Medicine Hospice and Palliative Medicine; ATTEND Internal Medicine Hospice and Palliative Medicine
DX: I69.354 Hemiplegia and hemiparesis following cerebral infarction affecting left non-dominant side (principal); R05 Cough; I48.91 Unspecified atrial fibrillation; S82.832A Other fracture of upper and lower end of left fibula, initial encounter for closed fracture; I25.10 Atherosclerotic heart disease of native coronary artery without angina pectoris; J44.9 Chronic obstructive pulmonary disease, unspecified; I50.9 Heart failure, unspecified; I11.0 Hypertensive heart disease with heart failure; E03.9 Hypothyroidism, unspecified; E78.5 Hyperlipidemia, unspecified; G47.33 Obstructive sleep apnea (adult) (pediatric); R04.0 Epistaxis; H54.40 Blindness, one eye, unspecified eye; H40.9 Unspecified glaucoma; W19.XXXA Unspecified fall, initial encounter; Z79.01 Long term (current) use of anticoagulants; Z95.1 Presence of aortocoronary bypass graft; Z95.5 Presence of coronary angioplasty implant and graft; Z96.652 Presence of left artificial knee joint; Z79.82 Long term (current) use of aspirin
CPT/HCPCS: 97110-GO; 97110-GP; 97116-GP; 97162-GP; 97166-GO; 97530-GO; 97530-GP; 97535-GO